=== PATIENT | male | born 1965 | race Caucasian/White ===

== ENCOUNTER 2016-06-23 19:58 | Emergency (ER) | payer OTHER ==
[~2016-06-23] VITALS: Ht 188 cm; Wt 85.0 kg
[~2016-06-23 19:58] MED LIST: CHLO10CA2 PO; METO25TA3 PO; MIRTA15 PO; PROZ40CA PO; QUET1TAB11 PO; SERO300T PO
[2016-06-23 20:08] VITALS: BP 123/76; PULSE 74; RESP 16; TEMP 97.8; O2SAT 96
--- NOTE | 2016-06-23 20:33 | PD ---
HPI Chief Complaint: Psychiatric Symptoms Time Seen by Provider: 20:32 Travel History International Travel<30 days: No Contact w/Intl Traveler<30days: No Traveled to known affect area: No History of Present Illness HPI 51-year-old male presents to the emergency department under [employer] act after calling 911 dispatch and telling them that he was at a retention [place] and he was going to jump in and drowning himself because he didn't want to live anymore. The patient has been uncooperative and history of present illness was unable to be obtained. He is being aggressive and yelling and being uncooperative to answer questions. PFSH Past Medical History Hx Anticoagulant Therapy: No ADHD: Yes Arthritis: No Asthma: No Autoimmune Disease: No Anxiety: Yes Depression: Yes Heart Rhythm Problems: Yes Cardiovascular Problems: Yes ([place] ON DECEMBER 21 2015) High Cholesterol: Yes Chemotherapy: No Chest Pain: Yes Congestive Heart Failure: No COPD: No Cerebrovascular Accident: No Diminished Hearing: No Endocrine: No Gastrointestinal Disorders: Yes (ACID REFLUX) GERD: Yes Genitourinary: No Hepatitis: No Hiatal Hernia: No Hypertension: Yes (HX OF, NOT ON MEDS) Immune Disorder: No Implanted Vascular Access Dvce: No Kidney Stones: No Medical other: No Musculoskeletal: Yes (FRACTURED L HAND) Neurologic: Yes (LEFT HAND GOES NUMB) Psychiatric: Yes Reproductive: No Respiratory: No Immunizations Current: Yes Migraines: No Myocardial Infarction: Yes (01/02) Radiation Therapy: No Renal Failure: No Sickle Cell Disease: No Sleep Apnea: No Thyroid Disease: No Ulcer: No Tetanus Vaccination: < 5 Years Influenza Vaccination: No Past Surgical History 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 Reported Meds & Prescriptions Reported Meds & Active Scripts Active Reported Seroquel (Quetiapine Fumarate) 300 Mg Tab 300 Mg PO BID Quetiapine (Quetiapine Fumarate) 400 Mg Tab 400 Mg PO HS Mirtazapine 15 Mg Tab 15 Mg PO HS Metoprolol Tartrate 25 Mg Tab 25 Mg PO BID Prozac (Fluoxetine HCl) 40 Mg Cap 40 Cap PO DAILY Chlordiazepoxide (Chlordiazepoxide HCl) 10 Mg Cap 10 Mg PO BID PRN Review of Systems ROS Limitations: Uncooperative, Combative Physical Exam Narrative Physical exam is limited due to visualization of the patient secondary to being uncooperative and combative. GENERAL: Well-nourished, well-developed male patient, in no acute distress SKIN: Warm and dry. HEAD: Atraumatic. Normocephalic. ENT: Mucosa pink and moist. NECK: Trachea midline. CARDIOVASCULAR: Regular rate. RESPIRATORY: No accessory muscle use. GASTROINTESTINAL: Flat. MUSCULOSKELETAL: No obvious deformities. No clubbing. No cyanosis. No edema. NEUROLOGICAL: Awake and alert. No obvious cranial nerve deficits. Motor grossly within normal limits. Normal speech. Moves all extremities. 5/5 strength to all extremities. PSYCHIATRIC: Uncooperative, combative, aggressive. Data Data Last Documented VS Vital Signs Date Time Temp Pulse Resp B/P Pulse Ox O2 Delivery O2 Flow Rate FiO2 06/23/16 20:10 16 06/23/16 20:08 97.8 74 123/76 96 Orders Complete Blood Count With Diff (06/23/16 20:20) Comprehensive Metabolic Panel (06/23/16 20:20) Drug Screen, Random Urine (06/23/16 20:20) Alcohol (Ethanol) (06/23/16 20:20) Psych Screen (06/23/16 20:20) MDM Medical Decision Making Medical Screen Exam Complete: Yes Emergency Medical Condition: Yes Medical Record Reviewed: Yes Differential Diagnosis Alcohol intoxication, medical clearance for psych evaluation, suicidal ideation , suicidal threat Narrative Course Patient presents under a Gunter act. Physical examination and vital signs are essentially unremarkable. Patient has no medical complaints to report. Psych screen has been ordered. If the laboratory results are unremarkable, the patient will be medically cleared for psychiatric evaluation and disposition. Diagnosis Primary Impression: Medical clearance for psychiatric admission Condition: Stable Pushpa Cates Jun 23, 2016 20:32
[2016-06-23 22:55] VITALS: BP 108/56; PULSE 100; RESP 18; TEMP 97.6; O2SAT 98
[2016-06-23 23:01] LABS: AMPHETAMINE, URINE NEG (NEG); BARBITURATES, URINE NEG (NEG); COCAINE, URINE NEG (NEG)
[2016-06-24 01:07] LABS: AUTOMATED NEUTROPHIL # 2.7 TH/MM3 (1.8-7.7); BASOPHIL % 0.1 % (0.0-2.0); EOSINOPHIL # 0.1 TH/MM3 (0-0.4); EOSINOPHIL % 1.7 % (0.0-4.0); HEMATOCRIT 40.7 % (39.0-51.0); HEMO FLAGS DIFF FINAL; LYMPH % 42.5 % (9.0-44.0); LYMPHOCYTE # 2.3 TH/MM3 (1.0-4.8); MEAN CELL VOLUME 86.9 FL (80.0-100.0); MEAN CORPUSCULAR HEMOGLOBIN 28.9 PG (27.0-34.0); MEAN CORPUSCULAR HGB CONC 33.3 % (32.0-36.0); MONO % 5.8 % (0.0-8.0); NEUT % 49.9 % (16.0-70.0); PLATELET COUNT 128 TH/MM3 (150-450); RED BLOOD COUNT 4.69 MIL/MM3 (4.50-5.90); RED CELL DISTRIBUTION WIDTH 15.8 % (11.6-17.2); WHITE BLOOD COUNT 5.4 TH/MM3 (4.0-11.0)
[2016-06-24 01:26] LABS: ALT (GPT) 31 U/L (12-78); ANION GAP 12 MEQ/L (5-15); AST (GOT) 24 U/L (15-37); BICARBONATE 25.9 MEQ/L (21.0-32.0); BLOOD UREA NITROGEN 11 MG/DL (7-18); CHLORIDE 105 MEQ/L (98-107); GLOMERULAR FILTRATION RATE 81 ML/MIN (>89); POTASSIUM 3.8 MEQ/L (3.5-5.1); SODIUM (NA) 143 MEQ/L (136-145)
[2016-06-24 01:29] LABS: ALKALINE PHOSPHATASE 92 U/L (45-117); TOTAL BILIRUBIN ADULT 0.3 MG/DL (0.2-1.0)
[2016-06-24 03:17] VITALS: BP 119/73; PULSE 95; RESP 18; TEMP 97.1; O2SAT 97
[2016-06-24 06:28] VITALS: BP 140/80; PULSE 105; RESP 18; O2SAT 97
--- NOTE | 2016-06-24 10:59 | PD.CONS ---
Provisional Diagnosis Admission Date [facility]. Alcohol use disorder, alcohol-induced mood disorder History of Present Illness Service Psychiatry Consult Requested By Primary Care Physician Nneka Núñez MD HPI The patient is a 51-year-old white man, domiciled with a friend, unemployed, single, with psychiatric history of alcohol use disorder, alcohol-induced mood disorder, depression, multiple ER visits under [employer] act for alcohol related issues, previous suicidal attempts by OD,who presents to the emergency department under [employer] act after calling 911 dispatch and telling them that he was at a retention pond and he was going to jump in and drowning himself because he didn't want to live anymore in the context of acute alcohol intoxication. On psychiatric evaluation today the patient was calm and cooperative, requesting to be discharged already, he says the last night he was drunk and he just wanted a place to stay and sleep and be safe. Today's he denies depressive symptoms, he denies suicidal ideation, he denies anxiety, he denies perceptual disturbances, such as visual and auditory hallucinations. Patient is fully oriented in 3, he doesn't report present any withdrawal symptom at this moment. She reports daily use of alcohol, mostly beers between 12 and 20, he denies the use of illicit drugs. He has been in several detox and rehabilitation was in the past. Patient says that he is willing to go to a detox program today "because, but it or not I want to quit alcohol". Review of Systems Constitutional: DENIES: Diaphoretic episodes, Fatigue, Fever, Weight gain, Weight loss, Chills, Dizziness, Change in appetite, Night Sweats Endocrine: DENIES: Heat/cold intolerance, Polydipsia, Polyuria, Polyphagia Eyes: DENIES: Blurred vision, Diplopia, Eye inflammation, Eye pain, Vision loss , Photosensitivity, Double Vision Ears, nose, mouth, throat: DENIES: Tinnitus, Hearing loss, Vertigo, Nasal discharge, Oral lesions, Throat pain, Hoarseness, Ear Pain, Running Nose, Epistaxis, Sinus Pain, Toothache, Odynophagia Cardiovascular: DENIES: Chest pain, Palpitations, Syncope, Dyspnea on Exertion , PND, Lower Extremity Edema, Orthopnea, Claudication Gastrointestinal: DENIES: Abdominal pain, Black stools, Bloody stools, Constipation, Diarrhea, Nausea, Vomiting, Difficulty Swallowing, Anorexia Musculoskeletal: DENIES: Joint pain, Muscle aches, Stiffness, Joint Swelling, Back pain, Neck pain Integumentary: DENIES: Abnormal pigmentation, Nail changes, Pruritus, Rash Hematologic/lymphatic: DENIES: Bruising, Lymphadenopathy Immunologic/allergic: DENIES: Eczema, Urticaria Neurologic: DENIES: Abnormal gait, Headache, Localized weakness, Paresthesias, Seizures, Speech Problems, Tremor, Poor Balance Psychiatric: DENIES: Anxiety, Confusion, Mood changes, Depression, Hallucinations, Agitation, Suicidal Ideation, Homicidal Ideation, Delusions Past Family Social History Coded Allergies: *MDRO Multi-Drug Resistant Organism (Verified Adverse Reaction, Unknown, ) MRSA (arm wound) 01/2015 Reported Medications Quetiapine (Seroquel)300 Mg [id number] Mg PO BID #60 TAB Ref 0 05/12/16 Quetiapine 400 Mg Bmv214 Mg PO HS #30 TAB Ref 0 05/12/16 Mirtazapine 15 Mg Tab15 Mg PO HS #30 TAB Ref 0 05/12/16 Metoprolol Tartrate 25 Mg Tab25 Mg PO BID #60 TAB Ref 0 05/12/16 Fluoxetine (Prozac)40 Mg Cap40 Cap PO DAILY #30 CAP Ref 0 05/12/16 Chlordiazepoxide 10 Mg Cap10 Mg PO BID PRN (Anxiety) Ref 0 05/12/16 Social History Patient was born and raised in [place], he has been living in [place] for 10 years, he lives with a friend, his unemployed, single, no kids, he has a GED Physical Exam Vital Signs Vital Signs Date Time Temp Pulse Resp B/P Pulse Ox O2 Delivery O2 Flow Rate FiO2 06/24/16 06:28 105 18 140/80 97 06/24/16 03:17 97.1 Room Air Mental Status Examination Appearance man, older than his stated age, calm and cooperative Speech: Unremarkable Orientation: x3 Memory: Unremarkable Thought Process: Logical Thought Content: Unremarkable Hallucination Type: None Suicidal Ideation: No Previous Suicide Attempts: Yes Homicidal Ideation: No Previous Homicide Attempts: No Insight: Good Judgement: WNL Affect: Good Mood: Appropriate Motor Activity: Normal gait Assessment & Plan Problem List: (1) Drug-induced mood disorder Assessment & Plan: At the moment of this evaluation the patient is clinically sober, calm and cooperative, logical and coherent, denies depressive symptoms, denies anxiety, denies perceptual disturbances, denies suicidal and homicidal ideation, denies visual and auditory hallucinations, he is future oriented, requesting to be discharged to go to a detox program. Referral for detox was provided in [facility]. At the moment of this evaluation the patient does not meet criteria for psychiatric admission or any immediate psychiatric intervention, his recent suicidal statements that brought him to the ER under Gunter act initiated by police was most probably the result of acute alcohol intoxication. Gunter act will be lifted. Extensive psychoeducation and motivation was provided. ICD Code: F19.94 Assessment & Plan Estimated LOS: Robert Sanabria MD Jun 24, 2016 10:59
== END 2016-06-24 08:54 | disposition home or self-care (01) ==
LOC: NEDAMB 19:58 → NEPJ 06-24 08:54
DX: F19.14 Other psychoactive substance abuse with psychoactive substance-induced mood disorder (principal); F10.10 Alcohol abuse, uncomplicated; F41.8 Other specified anxiety disorders; I10 Essential (primary) hypertension; F90.9 Attention-deficit hyperactivity disorder, unspecified type; I25.2 Old myocardial infarction; Z72.0 Tobacco use
CPT/HCPCS: 80053; 80307; 80320; 85025; 99284

== ENCOUNTER 2016-06-24 21:36 | Emergency (ER) | payer OTHER ==
[~2016-06-24] VITALS: Ht 182.9 cm; Wt 87.0 kg
[2016-06-24 21:44] VITALS: BP 129/93; PULSE 115; RESP 16; TEMP 98.8; O2SAT 96
[2016-06-24 22:24] LABS: AUTOMATED NEUTROPHIL # 3.4 TH/MM3 (1.8-7.7); BASOPHIL % 0.3 % (0.0-2.0); EOSINOPHIL # 0.1 TH/MM3 (0-0.4); EOSINOPHIL % 1.1 % (0.0-4.0); HEMO FLAGS DIFF FINAL; LYMPH % 40.1 % (9.0-44.0); LYMPHOCYTE # 2.6 TH/MM3 (1.0-4.8); MEAN CELL VOLUME 86.8 FL (80.0-100.0); MEAN CORPUSCULAR HEMOGLOBIN 29.9 PG (27.0-34.0); MEAN CORPUSCULAR HGB CONC 34.4 % (32.0-36.0); MONO % 6.7 % (0.0-8.0); NEUT % 51.8 % (16.0-70.0); PLATELET COUNT 145 TH/MM3 (150-450); RED BLOOD COUNT 4.84 MIL/MM3 (4.50-5.90); WHITE BLOOD COUNT 6.5 TH/MM3 (4.0-11.0)
[2016-06-24 22:42] LABS: AMPHETAMINE, URINE NEG (NEG); BARBITURATES, URINE NEG (NEG); COCAINE, URINE NEG (NEG)
[2016-06-24 22:46] LABS: BICARBONATE 25.9 MEQ/L (21.0-32.0); POTASSIUM 3.9 MEQ/L (3.5-5.1)
--- NOTE | 2016-06-24 23:31 | PD ---
HPI Chief Complaint: Psychiatric Symptoms Time Seen by Provider: 23:06 Travel History International Travel<30 days: No Contact w/Intl Traveler<30days: No Traveled to known affect area: No History of Present Illness HPI 51-year-old male came to the emergency room under Gunter act brought by PD. Patient is extremely intoxicated. His labs were protocoled and by the time I went to see him blood test results were back. Alcohol level is 366. Patient wakes up calling his name but has extremely slurred speech and not making sense. PFSH Past Medical History Narrative Medical List of his past medical history reviewed from the nursing note. Hx Anticoagulant Therapy: No ADHD: Yes Arthritis: No Asthma: No Autoimmune Disease: No Anxiety: Yes Depression: Yes Heart Rhythm Problems: Yes Cardiovascular Problems: Yes ([place] ON DECEMBER 21 2015) High Cholesterol: Yes Chemotherapy: No Chest Pain: Yes Congestive Heart Failure: No COPD: No Cerebrovascular Accident: No Diminished Hearing: No Endocrine: No Gastrointestinal Disorders: Yes (ACID REFLUX) GERD: Yes Genitourinary: No Hepatitis: No Hiatal Hernia: No Hypertension: Yes (HX OF, NOT ON MEDS) Immune Disorder: No Implanted Vascular Access Dvce: No Kidney Stones: No Musculoskeletal: Yes (FRACTURED L HAND) Neurologic: Yes (LEFT HAND GOES NUMB) Psychiatric: Yes Reproductive: No Respiratory: No Immunizations Current: Yes Migraines: No Myocardial Infarction: Yes (01/02) Radiation Therapy: No Renal Failure: No Sickle Cell Disease: No Sleep Apnea: No Thyroid Disease: No Ulcer: No Past Surgical History 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 Comments List of his medical allergies reviewed from the nursing note. Reported Meds & Prescriptions Reported Meds & Active Scripts Active Reported Seroquel (Quetiapine Fumarate) 300 Mg Tab 300 Mg PO BID Quetiapine (Quetiapine Fumarate) 400 Mg Tab 400 Mg PO HS Mirtazapine 15 Mg Tab 15 Mg PO HS Metoprolol Tartrate 25 Mg Tab 25 Mg PO BID Prozac (Fluoxetine HCl) 40 Mg Cap 40 Cap PO DAILY Chlordiazepoxide (Chlordiazepoxide HCl) 10 Mg Cap 10 Mg PO BID PRN Narrative Medication List of his home medications reviewed from the nursing note. Review of Systems Except as stated in HPI: all other systems reviewed are Neg Physical Exam Narrative GENERAL: Intoxicated, slurred speech SKIN: Warm and dry. HEAD: Atraumatic. Normocephalic. EYES: Pupils equal and round. No scleral icterus. No injection or drainage. ENT: No nasal bleeding or discharge. Mucous membranes pink and moist. NECK: Trachea midline. No JVD. CARDIOVASCULAR: Regular rate and rhythm. No murmur appreciated. RESPIRATORY: No accessory muscle use. Clear to auscultation. Breath sounds equal bilaterally. GASTROINTESTINAL: Abdomen soft, non-tender, nondistended. Hepatic and splenic margins not palpable. MUSCULOSKELETAL: No obvious deformities. No clubbing. No cyanosis. No edema. NEUROLOGICAL: Intoxicated. No obvious cranial nerve deficits. Motor grossly within normal limits. Slurred speech. PSYCHIATRIC: Appropriate mood and affect; insight and judgment normal. Data Data Last Documented VS Vital Signs Date Time Temp Pulse Resp B/P Pulse Ox O2 Delivery O2 Flow Rate FiO2 06/26/16 06:25 80 18 142/72 99 Room Air 06/25/16 18:50 97.8 Orders Complete Blood Count With Diff (06/24/16 22:12) Basic Metabolic Panel (Bmp) (06/24/16 22:12) Alcohol (Ethanol) (06/24/16 22:12) Drug Screen, Random Urine (06/24/16 22:12) Psych Screen (06/25/16 00:53) Diet Regular Basic (06/25/16 Breakfast) Alcohol Withdrawal Asmt-Ciwa ONCE (06/25/16 08:07) Flumazenil Inj (Romazicon Inj) (06/25/16 08:15) Lorazepam (Ativan) (06/25/16 08:15) Lorazepam Inj (Ativan Inj) (06/25/16 08:15) Lorazepam (Ativan) (06/25/16 08:15) Lorazepam Inj (Ativan Inj) (06/25/16 08:15) Lorazepam Inj (Ativan Inj) (06/25/16 08:15) Lorazepam Inj (Ativan Inj) (06/25/16 08:15) Diet Regular Basic (06/25/16 Lunch) Diet Regular Basic (06/25/16 Dinner) Diet Regular Basic (06/26/16 Breakfast) Labs Laboratory Tests Test 06/24/16 22:15 White Blood Count 6.5 TH/MM3 Red Blood Count 4.84 MIL/MM3 Hemoglobin 14.5 GM/DL Hematocrit 42.0 % Mean Corpuscular Volume 86.8 FL Mean Corpuscular Hemoglobin 29.9 PG Mean Corpuscular Hemoglobin 34.4 % Concent Red Cell Distribution Width 16.0 % Platelet Count 145 TH/MM3 Mean Platelet Volume 7.2 FL Neutrophils (%) (Auto) 51.8 % Lymphocytes (%) (Auto) 40.1 % Monocytes (%) (Auto) 6.7 % Eosinophils (%) (Auto) 1.1 % Basophils (%) (Auto) 0.3 % Neutrophils # (Auto) 3.4 TH/MM3 Lymphocytes # (Auto) 2.6 TH/MM3 Monocytes # (Auto) 0.4 TH/MM3 Eosinophils # (Auto) 0.1 TH/MM3 Basophils # (Auto) 0.0 TH/MM3 CBC Comment DIFF FINAL Differential Comment Sodium Level 142 MEQ/L Potassium Level 3.9 MEQ/L Chloride Level 104 MEQ/L Carbon Dioxide Level 25.9 MEQ/L Anion Gap 12 MEQ/L Blood Urea Nitrogen 9 MG/DL Creatinine 0.93 MG/DL Estimat Glomerular Filtration 86 ML/MIN Rate Random Glucose 99 MG/DL Calcium Level 8.9 MG/DL Urine Opiates Screen NEG Urine Barbiturates Screen NEG Urine Amphetamines Screen NEG Urine Benzodiazepines Screen NEG Urine Cocaine Screen NEG Urine Cannabinoids Screen NEG Ethyl Alcohol Level 366 MG/DL [facility] Medical Decision Making Medical Screen Exam Complete: Yes Emergency Medical Condition: Yes Medical Record Reviewed: Yes Differential Diagnosis Acute alcohol intoxication, suicidal ideation Narrative Course 11:30 PM patient needs to sober eyes and then get a psych screen. Procedures EKG Prior to Arrival: No Diagnosis Primary Impression: Acute alcohol intoxication Qualified Code: F10.121 - Acute alcohol intoxication, with delirium Remy Sierra MD Jun 24, 2016 23:31
[2016-06-25] VITALS (8 sets, daily range): BP systolic 95–134; BP diastolic 52–84; PULSE 92–122; RESP 18–20; TEMP 97.8–99.5; O2SAT 94–99
[2016-06-25] MEDS ORDERED: FLUMAZENIL 1 MG/10 ML VIAL IV PUSH PRN (08:15)
[2016-06-25] MEDS ORDERED: LORazepam 2 MG TAB PO PRN (08:15)
[2016-06-25] MEDS ORDERED: LORazepam 2 MG/ML VIAL IV PUSH PRN ×4 (08:15)
[2016-06-25] MEDS: LORazepam 1 MG TAB PO PRN ×3 (08:36→19:33)
[2016-06-26] MEDS: LORazepam 1 MG TAB PO PRN (00:49)
[2016-06-26 02:24] VITALS: BP_SYST 142; BP_DIAS 75; BP_DIAS 89; PULSE 77; PULSE 90; RESP 16; RESP 19; O2SAT 97; O2SAT 99
[2016-06-26 06:25] VITALS: BP 142/72; PULSE 80; RESP 18; O2SAT 99
--- NOTE | 2016-06-26 09:24 | PD ---
History of Present Illness Chief Complaint: Psychiatric Symptoms Time Seen by Provider: 09:00 Travel History International Travel<30 Days: No Contact w/Intl Traveler<30days: No Known affected area: No Legal Status Legal Status: Gunter Act Gunter Act Signed By: Candelaria Rasmussen History of Present Illness: History of Present Illness 51-year-old male with history of alcohol dependence who presents to the emergency room under [employer]ter act initiated by PD. As per the report " Cory munoz advised deputy Son that he wanted to hurt himself. He was intoxicated and advised that he wanted to throw himself into the pond [place] the [employer]". Patient presented intoxicated with BAL of 366 . As per record reviewed the patient was evaluated and released from the ED earlier in the day for alcohol intoxication as well with alcohol induced suicidality. This patient has had multiple visits to [facility] ed on and is usually intoxicated at the time. Patient was monitored in [facility] pod where he was allowed to sober up clinically. No behavioral concerns and no suicidality. Seen this morning with Nurse Riley. He is awake, alert and clinically sober. Speech is clear and logical, goal directed. There is no hallucinations, no delusions and no emily. Patient is ambulating well with no impairment. He denies any suicidal ideation, intent or plan. States " I don't even remember how I got here. I'm just glad I am here and not in half-way. I want to look for another sober living home.. He reports that he has been drinking since his birthday and had previously been sober x 37 days. PFSH Past Medical History Hx Anticoagulant Therapy: No ADHD: Yes Arthritis: No Asthma: No Autoimmune Disease: No Anxiety: Yes Depression: Yes Heart Rhythm Problems: Yes Cardiovascular Problems: Yes ([place] ON DECEM[place] 21 2015) High Cholesterol: Yes Chemotherapy: No Chest Pain: Yes Congestive Heart Failure: No COPD: No Cerebrovascular Accident: No Diminished Hearing: No Endocrine: No Gastrointestinal Disorders: Yes (ACID REFLUX) GERD: Yes Genitourinary: No Hepatitis: No Hiatal Hernia: No Hypertension: Yes (HX OF, NOT ON MEDS) Immune Disorder: No Implanted Vascular Access Dvce: No Kidney Stones: No Musculoskeletal: Yes (FRACTURED L HAND) Neurologic: Yes (LEFT HAND GOES NUMB) Psychiatric: Yes Reproductive: No Respiratory: No Immunizations Current: Yes Migraines: No Myocardial Infarction: Yes (01/02) Radiation Therapy: No Renal Failure: No Sickle Cell Disease: No Sleep Apnea: No Thyroid Disease: No Ulcer: No Past Surgical History Abdominal Surgery: No AICD: No Arteriovenous Shunt: No Cardiac Surgery: No Ear Surgery: No Endocrine Surgery: No Eye Surgery: No Genitourinary Surgery: No Gynecologic Surgery: No Hysterectomy: No Insulin Pump: No Joint Replacement: No Neurologic Surgery: No Oral Surgery: Yes (TOOTH REMOVAL) Pacemaker: No Thoracic Surgery: No Psychiatric History Psychiatric History Hx Psychiatric Treatment: HX OF ANXIETY AND DEPRESSION History of Inpatient Treatment: Yes ([facility] January 2016 for alcohol induced mood disorder.) Guns or firearms in home: No Social History Single male. Has been working for [employer]. Was living at [facility]. Hx Alcohol Use: Yes (DAILY) Hx Tobacco Use: Yes Hx Substance Use: Yes Substance Use Type: Alcohol, Marijuana, Nicotine/Cigarettes Other Substances Used: DAILY DRINKER Hx of Substance Use Treatment: Yes Family Psychiatric History None reported Allergies-Medications (Allergen,Severity, Reaction): Coded Allergies: *MDRO Multi-Drug Resistant Organism (Verified Adverse Reaction, Unknown, ) MRSA (arm wound) 01/2015 Reported Meds & Prescriptions Reported Meds & Active Scripts Active Reported Seroquel (Quetiapine Fumarate) 300 Mg Tab 300 Mg PO BID Quetiapine (Quetiapine Fumarate) 400 Mg Tab 400 Mg PO HS Mirtazapine 15 Mg Tab 15 Mg PO HS Metoprolol Tartrate 25 Mg Tab 25 Mg PO BID Prozac (Fluoxetine HCl) 40 Mg Cap 40 Cap PO DAILY Chlordiazepoxide (Chlordiazepoxide HCl) 10 Mg Cap 10 Mg PO BID PRN Review of Systems Constitutional: DENIES: Diaphoretic episodes, Fatigue, Fever, Weight gain, Weight loss, Chills, Dizziness, Change in appetite, Night Sweats Endocrine: DENIES: Heat/cold intolerance, Polydipsia, Polyuria, Polyphagia Eyes: DENIES: Blurred vision, Diplopia, Eye inflammation, Eye pain, Vision loss , Photosensitivity, Double Vision Cardiovascular: DENIES: Chest pain, Palpitations, Syncope, Dyspnea on Exertion , PND, Lower Extremity Edema, Orthopnea, Claudication Gastrointestinal: COMPLAINS OF: Diarrhea, Nausea Genitourinary: DENIES: Sexual dysfunction, Urinary frequency, Urinary incontinence, Urgency, Hematuria, Dysuria, Nocturia, Penile Discharge, Testicular Pain, Testicular Swelling Musculoskeletal: DENIES: Joint pain, Muscle aches, Stiffness, Joint Swelling, Back pain, Neck pain Integumentary: DENIES: Abnormal pigmentation, Nail changes, Pruritus, Rash Hematologic/lymphatic: DENIES: Bruising, Lymphadenopathy Immunologic/allergic: DENIES: Eczema, Urticaria Psychiatric: DENIES: Anxiety, Confusion, Mood changes, Depression, Hallucinations, Agitation, Suicidal Ideation, Homicidal Ideation, Delusions Exam Alert: Yes [place]: Person (ox4) Mood: Calm Affect: Euthymic Speech: Clear, Logical Eye Contact: Normal Memory Intact: Comment (no impairment) Hallucinations: Other (negative) Delusions: No Suicidal: Ideation (deneis any) Homicidal: Ideation (nagative) Insight/Judgement Fair. Poor MDM Medical Decision Making Medical Record Reviewed: Yes Assessment/Plan 51 year old male with hx of alcohol dependence who is BA after he was found in the back of [facility] in an intoxicated state. He alledgedly reported that he was thinking of jumping into a pond and was therefore BA. Patient was monitored in controlled environment and was allowed to sober up clinically. After observation and once clinically sober he denies any suicidal or homicidal ideation, intent or plan. At this time does not meet BA criteria and does not present any acute psychiatric symptomatology. Information regarding available resources for sober living provided. Lift BA Orders Diet Regular Basic (06/25/16 Dinner) Diet Regular Basic (06/26/16 Breakfast) Results Vital Signs Date Time Temp Pulse Resp B/P Pulse Ox O2 Delivery O2 Flow Rate FiO2 06/26/16 06:25 80 18 142/72 99 Room Air 06/26/16 02:24 90 16 142/89 97 Room Air 06/25/16 22:34 100 18 134/84 Room Air 06/25/16 18:50 97.8 119 18 126/76 96 Room Air 06/25/16 14:47 122 20 132/70 94 Room Air 06/25/16 11:25 99.5 110 18 128/70 96 Room Air Diagnosis Primary Impression: Acute alcohol intoxication Additional Impression: Alcohol use disorder, severe, dependence Psychiatrically Cleared: Yes Disposition: 01 DISCHARGE HOME Condition: Stable Problem Qualifiers Primary Impression: Acute alcohol intoxication Qualified Code: F10.120 - Acute alcohol intoxication, uncomplicated Aurea Byrnes Jun 26, 2016 09:24
== END 2016-06-26 10:43 | disposition home or self-care (01) ==
LOC: NEPC 21:36 → NEPJ 06-26 10:43
DX: F10.229 Alcohol dependence with intoxication, unspecified (principal); E78.00 Pure hypercholesterolemia, unspecified; K21.9 Gastro-esophageal reflux disease without esophagitis; I10 Essential (primary) hypertension; I25.2 Old myocardial infarction; Z72.0 Tobacco use
CPT/HCPCS: 80048; 80307; 80320; 85025; 99284

== ENCOUNTER 2016-06-29 20:18 | Emergency (ER) | payer OTHER ==
[~2016-06-29] VITALS: Ht 190.5 cm; Wt 95.0 kg
[2016-06-29 20:27] VITALS: BP 142/96; PULSE 104; RESP 18; TEMP 98.1; O2SAT 98
--- NOTE | 2016-06-29 21:21 | PD ---
HPI Chief Complaint: Psychiatric Symptoms Time Seen by Provider: 21:18 Travel History International Travel<30 days: No Contact w/Intl Traveler<30days: No Traveled to known affect area: No History of Present Illness HPI The patient is a 51 year old male who presents to the [facility] emergency department with a history of being brought in by the police manager under a Gunter act due to reports that he wanted to kill himself. The patient is noted to have a prior history of major depression with psychotic features and PTSD. The patient has been admitted to the psychiatric service at this facility previously. The patient reports that he recently lost his job on June 21. He reports that he's had increasing depression since then. He reports that he stopped taking his psychiatric medications in May. He reports that he stopped taking the Seroquel that was working well for him when the dose was decreased. He reports that it helps him to sleep. He is not sure why the dose was decreased at that time. Ports that he has been drinking as much alcohol as he can get a hold of. He reports that when he drinks alcohol he does smoke. He denies using any drugs. The patient reports that he has been experiencing suicidal ideations. On arrival to the room, the patient is requesting food. The patient denies any recent fevers, cough, congestion, neck pain, chest pain, shortness of breath, abdominal pain, vomiting, diarrhea, urinary symptoms, or neurologic symptoms. [facility] Past Medical History Narrative Medical The patient's past medical history is reportedly significant for having chest pain, reported history of myocardial infarction in December 2015. The patient has a history of chronic low back pain, history of seizure disorder, alcohol abuse Hx Anticoagulant Therapy: No ADHD: Yes Arthritis: No Asthma: No Autoimmune Disease: No Anxiety: Yes Depression: Yes Heart Rhythm Problems: Yes Cardiovascular Problems: Yes ([place] ON DECEMBER 21 2015) High Cholesterol: Yes Chemotherapy: No Chest Pain: Yes Congestive Heart Failure: No COPD: No Cerebrovascular Accident: No Diminished Hearing: No Endocrine: No Gastrointestinal Disorders: Yes (ACID REFLUX) GERD: Yes Genitourinary: No Hepatitis: No Hiatal Hernia: No Hypertension: Yes (HX OF, NOT ON MEDS) Immune Disorder: No Implanted Vascular Access Dvce: No Kidney Stones: No Musculoskeletal: Yes (FRACTURED L HAND) Neurologic: Yes (LEFT HAND GOES NUMB) Psychiatric: Yes Reproductive: No Respiratory: No Immunizations Current: Yes Migraines: No Myocardial Infarction: Yes (01/02) Radiation Therapy: No Renal Failure: No Sickle Cell Disease: No Sleep Apnea: No Thyroid Disease: No Ulcer: No Influenza Vaccination: No Past Surgical History Narrative Surgical The patient's past surgical history is significant for left hand surgery. 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 Reported Meds & Prescriptions Reported Meds & Active Scripts Active Reported Seroquel (Quetiapine Fumarate) 300 Mg Tab 300 Mg PO BID Quetiapine (Quetiapine Fumarate) 400 Mg Tab 400 Mg PO HS Mirtazapine 15 Mg Tab 15 Mg PO HS Metoprolol Tartrate 25 Mg Tab 25 Mg PO BID Prozac (Fluoxetine HCl) 40 Mg Cap 40 Cap PO DAILY Chlordiazepoxide (Chlordiazepoxide HCl) 10 Mg Cap 10 Mg PO BID PRN Review of Systems Except as stated in HPI: all other systems reviewed are Neg General / Constitutional: No: Fever Eyes: No: Visual changes HENT: No: Headaches Cardiovascular: No: Chest Pain or Discomfort Respiratory: No: Shortness of Breath Gastrointestinal: No: Abdominal Pain Genitourinary: No: Dysuria Musculoskeletal: No: Pain Skin: No Rash Neurologic: No: Weakness Psychiatric: Positive: Anxiety, Depression, Suicidal Ideations, Mood Disorder, Substance Abuse, No: Homicidal Ideation Endocrine: No: Polydipsia Hematologic/Lymphatic: No: Easy Bruising Physical Exam Narrative General: The patient is a well-developed well-nourished male in no acute distress. Head and Neck exam: Head is normocephalic atraumatic. Eyes: Pupils are equal round and reactive to light. Nose: Midline septum with pink mucous membranes Mouth: Dentition unremarkable. Moist mucus membranes. Posterior oropharynx is not erythematous. No tonsillar hypertrophy. Uvula midline. Airway patent. Neck: No palpable lymphadenopathy. No nuchal rigidity. No thyromegaly. Cardiovascular: Regular rate and rhythm without murmurs, gallops, or rubs. Lungs: Clear to auscultation bilaterally. No wheezes, rhonchi, or rales. Abdomen: Soft, without tenderness to palpation in all 4 quadrants of the abdomen. No guarding, rebound, or rigidity. Normal bowel sounds are audible. Extremities: No clubbing, cyanosis, or edema. 2+ pulses in all 4 extremities. Neurologic Exam: Grossly nonfocal. No evidence of facial asymmetry. Strength 5 over 5 in all 4 extremities. The patient has slurred speech with an odor of alcohol about him. He is however oriented to person, place, time, and situation. Skin Exam: No rash noted. Intact skin that is warm and dry. Data Data Last Documented VS Vital Signs Date Time Temp Pulse Resp B/P Pulse Ox O2 Delivery O2 Flow Rate FiO2 06/29/16 20:27 98.1 104 18 142/96 98 Orders Complete Blood Count With Diff (06/29/16 21:19) Comprehensive Metabolic Panel (06/29/16 21:19) Urinalysis - C+S If Indicated (06/29/16 21:19) Drug Screen, Random Urine (06/29/16 21:19) Alcohol (Ethanol) (06/29/16 21:19) Salicylates (Aspirin) (06/29/16 21:19) Tylenol (Acetaminophen) (06/29/16 21:19) Psych Screen (06/29/16 21:19) Quetiapine (Seroquel) (06/29/16 21:45) Labs Laboratory Tests Test 06/29/16 21:30 White Blood Count 8.7 TH/MM3 Red Blood Count 4.85 MIL/MM3 Hemoglobin 14.3 GM/DL Hematocrit 42.0 % Mean Corpuscular Volume 86.5 FL Mean Corpuscular Hemoglobin 29.4 PG Mean Corpuscular Hemoglobin 34.0 % Concent Red Cell Distribution Width 15.8 % Platelet Count 111 TH/MM3 Mean Platelet Volume 7.4 FL Neutrophils (%) (Auto) 76.0 % Lymphocytes (%) (Auto) 19.7 % Monocytes (%) (Auto) 3.4 % Eosinophils (%) (Auto) 0.5 % Basophils (%) (Auto) 0.4 % Neutrophils # (Auto) 6.6 TH/MM3 Lymphocytes # (Auto) 1.7 TH/MM3 Monocytes # (Auto) 0.3 TH/MM3 Eosinophils # (Auto) 0.0 TH/MM3 Basophils # (Auto) 0.0 TH/MM3 CBC Comment DIFF FINAL Differential Comment Urine Color COLORLESS Urine Turbidity CLEAR Urine pH 5.0 Urine Specific [place] 1.003 Urine Protein NEG mg/dL Urine Glucose (UA) NEG mg/dL Urine Ketones NEG mg/dL Urine Occult Blood NEG Urine Nitrite NEG Urine Bilirubin NEG Urine Urobilinogen LESS THAN 2.0 MG/DL Urine Leukocyte Esterase NEG Urine RBC LESS THAN 1 /hpf Urine WBC 1 /hpf Microscopic Urinalysis Comment CULT NOT INDICATED Sodium Level 138 MEQ/L Potassium Level 3.8 MEQ/L Chloride Level 101 MEQ/L Carbon Dioxide Level 25.2 MEQ/L Anion Gap 12 MEQ/L Blood Urea Nitrogen 10 MG/DL Creatinine 0.87 MG/DL Estimat Glomerular Filtration 93 ML/MIN Rate Random Glucose 80 MG/DL Calcium Level 8.7 MG/DL Total Bilirubin 0.4 MG/DL Aspartate Amino Transf 39 U/L (AST/SGOT) Alanine Aminotransferase 41 U/L (ALT/SGPT) Alkaline Phosphatase 100 U/L Total Protein 9.1 GM/DL Albumin 4.5 GM/DL Salicylates Level LESS THAN 1.7 MG/DL Urine Opiates Screen NEG Acetaminophen Level LESS THAN 2.0 MCG/ML Urine Barbiturates Screen NEG Urine Amphetamines Screen NEG Urine Benzodiazepines Screen NEG Urine Cocaine Screen NEG Urine Cannabinoids Screen NEG Ethyl Alcohol Level 322 MG/DL [facility] Medical Decision Making Medical Screen Exam Complete: Yes Emergency Medical Condition: Yes Medical Record Reviewed: Yes Differential Diagnosis Depression with suicidal ideations, versus substance induced mood disorder, versus exacerbation of PTSD Narrative Course During the course of the patients emergency department visit, the patients history, examination, and differential diagnosis were reviewed with the patient. The patient had IV access obtained and blood work sent for analysis. The patient was provided Seroquel by mouth, as he reports being on this in the past and doing well previously. He was restarted back on the medication and 50 mg by mouth times one now. The patients laboratory studies were reviewed and remarkable for a CBC that is remarkable for thrombocytopenia with a platelet of 111, CMP is remarkable for an AST of 39 and a total protein 9.1, total protein 9.1, urinalysis within normal limits, salicylate less than 1.7, acetaminophen less than 2, urine drug screen is negative, alcohol level CCCXXII. The patient has been medically cleared for admission to the psychiatric service under a Gunter act. Diagnosis Primary Impression: Depression with suicidal ideation Additional Impression: Acute alcohol intoxication Qualified Code: F10.129 - Acute alcohol intoxication, with unspecified complication Florinda Rutherford MD Jun 29, 2016 21:21
[2016-06-29] MEDS ORDERED: QUEtiapine FUMARATE 25 MG TAB PO ONE (21:45)
[2016-06-29 21:47] LABS: AUTOMATED NEUTROPHIL # 6.6 TH/MM3 (1.8-7.7); BASOPHIL % 0.4 % (0.0-2.0); EOSINOPHIL % 0.5 % (0.0-4.0); HEMO FLAGS DIFF FINAL; LYMPH % 19.7 % (9.0-44.0); LYMPHOCYTE # 1.7 TH/MM3 (1.0-4.8); MEAN CELL VOLUME 86.5 FL (80.0-100.0); MEAN CORPUSCULAR HEMOGLOBIN 29.4 PG (27.0-34.0); MONO % 3.4 % (0.0-8.0); PLATELET COUNT 111 TH/MM3 (150-450); RED BLOOD COUNT 4.85 MIL/MM3 (4.50-5.90); RED CELL DISTRIBUTION WIDTH 15.8 % (11.6-17.2); WHITE BLOOD COUNT 8.7 TH/MM3 (4.0-11.0)
[2016-06-29 21:48] LABS: BLOOD, URINE NEG (NEG); GLUCOSE,URINE NEG (NEG); KETONE, URINE NEG (NEG); NITRITE,URINE NEG (NEG); URINE COLOR COLORLESS (YELLW/STRAW)
[2016-06-29 21:50] LABS: COMMENT (UR) CULT NOT INDICATED; CULTURE IF INDICATED CULT NOT INDICATED
[2016-06-29 21:55] LABS: AMPHETAMINE, URINE NEG (NEG); BARBITURATES, URINE NEG (NEG); COCAINE, URINE NEG (NEG)
[2016-06-29 22:03] LABS: ANION GAP 12 MEQ/L (5-15)
[2016-06-29 22:06] LABS: ALKALINE PHOSPHATASE 100 U/L (45-117); ALT (GPT) 41 U/L (12-78); AST (GOT) 39 U/L (15-37); BICARBONATE 25.2 MEQ/L (21.0-32.0); BLOOD UREA NITROGEN 10 MG/DL (7-18); CHLORIDE 101 MEQ/L (98-107); GLOMERULAR FILTRATION RATE 93 ML/MIN (>89); POTASSIUM 3.8 MEQ/L (3.5-5.1); SODIUM (NA) 138 MEQ/L (136-145); TOTAL BILIRUBIN ADULT 0.4 MG/DL (0.2-1.0)
[2016-06-29 22:23] LABS: ACETAMINOPHEN LESS THAN 2.0 MCG/ML (10.0-30.0)
== END 2016-06-30 03:01 ==
LOC: NEPE 20:18 → NEPB 06-30 03:01
DX: F32.9 Major depressive disorder, single episode, unspecified (principal); F10.129 Alcohol abuse with intoxication, unspecified; Y90.8 Blood alcohol level of 240 mg/100 ml or more
CPT/HCPCS: 80053; 80307; 80320; 80329; 81001; 85025; 99283; G0480

== ENCOUNTER 2016-07-25 20:59 | Emergency (ER) | payer OTHER ==
[~2016-07-25] VITALS: Ht 190.5 cm; Wt 94.0 kg
[2016-07-25 21:09] VITALS: BP 133/88; PULSE 100; RESP 17; TEMP 98.9; O2SAT 94
[2016-07-25] MEDS ORDERED: IBUPROFEN 600 MG TAB PO ONE (22:15)
[2016-07-25 22:26] LABS: BASOPHIL % 0.2 % (0.0-2.0); EOSINOPHIL % 0.6 % (0.0-4.0); HEMATOCRIT 40.1 % (39.0-51.0); HEMO FLAGS DIFF FINAL; LYMPH % 24.5 % (9.0-44.0); LYMPHOCYTE # 1.4 TH/MM3 (1.0-4.8); MEAN CELL VOLUME 88.8 FL (80.0-100.0); MEAN CORPUSCULAR HEMOGLOBIN 31.3 PG (27.0-34.0); MEAN CORPUSCULAR HGB CONC 35.3 % (32.0-36.0); MONO % 7.1 % (0.0-8.0); NEUT % 67.6 % (16.0-70.0); PLATELET COUNT 114 TH/MM3 (150-450); RED BLOOD COUNT 4.52 MIL/MM3 (4.50-5.90); RED CELL DISTRIBUTION WIDTH 16.3 % (11.6-17.2); WHITE BLOOD COUNT 5.9 TH/MM3 (4.0-11.0)
--- NOTE | 2016-07-25 22:26 | PD ---
HPI Chief Complaint: Psychiatric Symptoms Time Seen by Provider: 22:00 Travel History International Travel<30 days: No Contact w/Intl Traveler<30days: No Traveled to known affect area: No History of Present Illness HPI 51-year-old male with history of alcohol abuse and depression presents to the emergency room under a Gunter act for evaluation of suicidal ideation. Patient is well-known to the emergency room for similar presentations in the past. He called the police department stating he was suicidal with a plan to hang himself but someone "stole the rope" yesterday. He drinks approximately 144 ounces of wine per day including today. Reports occasional marijuana use. Denies any other illicit drug use. He reports history of heart attack for which he is supposed to be taking medications but he is noncompliant. He is also supposed to be taking antidepressants and Seroquel but is not doing so. Patient complains of left elbow pain and swelling for the past 3 days. States he fell on the elbow when he was drunk but does not remember it. The swelling has gotten smaller in size but tighter causing increased pain with extension. Denies upper extremity paresthesias or weakness. PFSH Past Medical History Hx Anticoagulant Therapy: No ADHD: Yes Arthritis: No Asthma: No Autoimmune Disease: No Anxiety: Yes Depression: Yes Heart Rhythm Problems: Yes Cardiovascular Problems: Yes ([place] ON DECEMBER 21 2015) High Cholesterol: Yes Chemotherapy: No Chest Pain: Yes Congestive Heart Failure: No COPD: No Cerebrovascular Accident: No Diminished Hearing: No Endocrine: No Gastrointestinal Disorders: Yes (ACID REFLUX) GERD: Yes Genitourinary: No Hepatitis: No Hiatal Hernia: No Heparin Induced Thrombocytopen: No Hypertension: Yes (HX OF, NOT ON MEDS) Immune Disorder: No Implanted Vascular Access Dvce: No Kidney Stones: No Medical other: No Musculoskeletal: Yes (FRACTURED L HAND) Neurologic: Yes (LEFT HAND GOES NUMB) Psychiatric: Yes Reproductive: No Respiratory: No Immunizations Current: Yes Migraines: No Myocardial Infarction: Yes (01/02) Radiation Therapy: No Renal Failure: No Sickle Cell Disease: No Sleep Apnea: No Thyroid Disease: No Ulcer: No Past Surgical History 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 Reported Meds & Prescriptions Reported Meds & Active Scripts Active Reported Seroquel (Quetiapine Fumarate) 300 Mg Tab 300 Mg PO BID Prozac (Fluoxetine HCl) 40 Mg Cap 40 Cap PO DAILY Review of Systems Except as stated in HPI: all other systems reviewed are Neg Physical Exam Narrative GENERAL: Well-nourished, well-developed male in no acute distress. Afebrile. Ambulatory. SKIN: Warm and dry. Mild erythema over the olecranon bursitis. No significant erythema or increased warmth. HEAD: Normocephalic. EYES: No scleral icterus. No injection or drainage. NECK: Supple, trachea midline. No JVD or lymphadenopathy. CARDIOVASCULAR: Regular rate and rhythm without murmurs, gallops, or rubs. RESPIRATORY: Breath sounds equal bilaterally. No accessory muscle use. EXTREMITY: Left elbow mildly tender to palpation. Patient can extend to approximately 145 and flex to 45. Moderate olecranon bursitis present. 2+ radial pulse. Radial, ulnar, and median nerves intact. Data Data Last Documented VS Vital Signs Date Time Temp Pulse Resp B/P Pulse Ox O2 Delivery O2 Flow Rate FiO2 07/26/16 22:06 91 18 133/84 99 Room Air 07/25/16 21:09 98.9 Orders Complete Blood Count With Diff (07/25/16 22:03) Basic Metabolic Panel (Bmp) (07/25/16 22:03) Drug Screen, Random Urine (07/25/16 22:03) Alcohol (Ethanol) (07/25/16 22:03) Psych Screen (07/25/16 22:03) Elbow, Limited (Ap&Lat) (07/25/16 ) Ibuprofen (Motrin) (07/25/16 22:15) Alcohol Withdrawal Asmt-Ciwa ONCE (07/25/16 23:32) Flumazenil Inj (Romazicon Inj) (07/25/16 23:45) Lorazepam (Ativan) (07/25/16 23:45) Lorazepam Inj (Ativan Inj) (07/25/16 23:45) Lorazepam (Ativan) (07/25/16 23:45) Lorazepam Inj (Ativan Inj) (07/25/16 23:45) Lorazepam Inj (Ativan Inj) (07/25/16 23:45) Lorazepam Inj (Ativan Inj) (07/25/16 23:45) Diet Regular Basic (07/26/16 Breakfast) Diet Regular Basic (07/26/16 Lunch) Diet Regular Basic (07/26/16 Dinner) Labs Laboratory Tests Test 07/25/16 07/26/16 22:00 10:10 White Blood Count 5.9 TH/MM3 Red Blood Count 4.52 MIL/MM3 Hemoglobin 14.1 GM/DL Hematocrit 40.1 % Mean Corpuscular Volume 88.8 FL Mean Corpuscular Hemoglobin 31.3 PG Mean Corpuscular Hemoglobin 35.3 % Concent Red Cell Distribution Width 16.3 % Platelet Count 114 TH/MM3 Mean Platelet Volume 7.5 FL Neutrophils (%) (Auto) 67.6 % Lymphocytes (%) (Auto) 24.5 % Monocytes (%) (Auto) 7.1 % Eosinophils (%) (Auto) 0.6 % Basophils (%) (Auto) 0.2 % Neutrophils # (Auto) 4.0 TH/MM3 Lymphocytes # (Auto) 1.4 TH/MM3 Monocytes # (Auto) 0.4 TH/MM3 Eosinophils # (Auto) 0.0 TH/MM3 Basophils # (Auto) 0.0 TH/MM3 CBC Comment DIFF FINAL Differential Comment Sodium Level 141 MEQ/L Potassium Level 4.2 MEQ/L Chloride Level 104 MEQ/L Carbon Dioxide Level 24.7 MEQ/L Anion Gap 12 MEQ/L Blood Urea Nitrogen 13 MG/DL Creatinine 1.06 MG/DL Estimat Glomerular Filtration 74 ML/MIN Rate Random Glucose 148 MG/DL Calcium Level 8.7 MG/DL Ethyl Alcohol Level 365 MG/DL Urine Opiates Screen NEG Urine Barbiturates Screen NEG Urine Amphetamines Screen NEG Urine Benzodiazepines Screen NEG Urine Cocaine Screen NEG Urine Cannabinoids Screen POS MDM Medical Decision Making Medical Screen Exam Complete: Yes Emergency Medical Condition: Yes Medical Record Reviewed: Yes Differential Diagnosis Alcohol intoxication versus malingering versus major depression versus olecranon bursitis versus cellulitis versus septic arthritis unlikely Narrative Course 51-year-old male history of alcoholism and depression presents to the emergency room under Gunter act for psychiatric evaluation of suicidal ideation. His plan is to hang himself but somebody stole the rope. Patient drank 144 ounces of wine today. He is alert and oriented. Answering questions appropriately. Vital signs stable. Physical exam reveals olecranon bursitis of the left elbow. Patient reports falling on it approximately 3 days ago. No evidence of cellulitis or septic arthritis at this time. X-ray pending. CBC unremarkable. BMP, drug screen, and ETOH ordered and pending. Patient signed out to nighttime provider. Diagnosis Primary Impression: Medical clearance for psychiatric admission Additional Impression: Olecranon bursitis of left elbow Condition: Stable Johanna Sosa Jul 25, 2016 22:26
--- NOTE | 2016-07-25 23:05 | RADRPT ---
EXAM DATE/TIME: 07/25/2016 22:40 [place] COMPARISON: No previous studies available for comparison. INDICATIONS : Left posterior elbow pain for several days. No known injury. MEDICAL HISTORY : None. SURGICAL HISTORY : None. ENCOUNTER: Initial ACUITY: 1 day PAIN SCORE: 6/10 LOCATION: Left posterior elbow. FINDINGS: Bone density normal. No effusion. No fracture or dislocation. Prominent soft tissue swelling posterio r to the olecranon is noted likely related to bursitis. CONCLUSION: Prominent soft tissue swelling posterior to the olecranon may be seen with bursitis, cellulitis also in the differential. Pedro Espino MD on July 25, 2016 at 23:03 Board Certified Radiologist. This report was verified electronically.
[2016-07-25 23:10] LABS: BICARBONATE 24.7 MEQ/L (21.0-32.0); POTASSIUM 4.2 MEQ/L (3.5-5.1)
--- NOTE | 2016-07-25 23:37 | PD ---
Physical Exam Time Seen by Provider: 23:30 Data Data Last Documented VS Vital Signs Date Time Temp Pulse Resp B/P Pulse Ox O2 Delivery O2 Flow Rate FiO2 07/25/16 21:09 98.9 100 17 133/88 94 Orders Complete Blood Count With Diff (07/25/16 22:03) Basic Metabolic Panel (Bmp) (07/25/16 22:03) Drug Screen, Random Urine (07/25/16 22:03) Alcohol (Ethanol) (07/25/16 22:03) Psych Screen (07/25/16 22:03) Elbow, Limited (Ap&Lat) (07/25/16 ) Ibuprofen (Motrin) (07/25/16 22:15) Alcohol Withdrawal Asmt-Ciwa ONCE (07/25/16 23:32) Flumazenil Inj (Romazicon Inj) (07/25/16 23:45) Lorazepam (Ativan) (07/25/16 23:45) Lorazepam Inj (Ativan Inj) (07/25/16 23:45) Lorazepam (Ativan) (07/25/16 23:45) Lorazepam Inj (Ativan Inj) (07/25/16 23:45) Lorazepam Inj (Ativan Inj) (07/25/16 23:45) Lorazepam Inj (Ativan Inj) (07/25/16 23:45) Labs Laboratory Tests Test 07/25/16 22:00 White Blood Count 5.9 TH/MM3 Red Blood Count 4.52 MIL/MM3 Hemoglobin 14.1 GM/DL Hematocrit 40.1 % Mean Corpuscular Volume 88.8 FL Mean Corpuscular Hemoglobin 31.3 PG Mean Corpuscular Hemoglobin 35.3 % Concent Red Cell Distribution Width 16.3 % Platelet Count 114 TH/MM3 Mean Platelet Volume 7.5 FL Neutrophils (%) (Auto) 67.6 % Lymphocytes (%) (Auto) 24.5 % Monocytes (%) (Auto) 7.1 % Eosinophils (%) (Auto) 0.6 % Basophils (%) (Auto) 0.2 % Neutrophils # (Auto) 4.0 TH/MM3 Lymphocytes # (Auto) 1.4 TH/MM3 Monocytes # (Auto) 0.4 TH/MM3 Eosinophils # (Auto) 0.0 TH/MM3 Basophils # (Auto) 0.0 TH/MM3 CBC Comment DIFF FINAL Differential Comment Sodium Level 141 MEQ/L Potassium Level 4.2 MEQ/L Chloride Level 104 MEQ/L Carbon Dioxide Level 24.7 MEQ/L Anion Gap 12 MEQ/L Blood Urea Nitrogen 13 MG/DL Creatinine 1.06 MG/DL Estimat Glomerular Filtration 74 ML/MIN Rate Random Glucose 148 MG/DL Calcium Level 8.7 MG/DL Ethyl Alcohol Level 365 MG/DL [facility] Medical Record Reviewed: Yes Supervised Visit with COCO: No Narrative Course I assumed care of this patient from previous provider to follow up on labs and imaging studies. Please see her dictation for complete history of present illness. The patient's lab work is notable for an alcohol level of 365. He is a daily drinker. CIWA protocols initiated. X-ray imaging of the left elbow reveals prominent soft tissue swelling posterior to the olecranon. Examination reveals left olecranon bursitis which is not septic on examination. I discussed with the patient the treatment for olecranon bursitis is typically conservative treatment including ice packs, NSAIDs, time and I reassured the patient. I did also discuss with him signs and symptoms of a septic bursitis which would warrant returning to the emergency room he verbalizes understanding. The patient is medically cleared for psychiatric disposition. Diagnosis Primary Impression: Medical clearance for psychiatric admission Additional Impression: Olecranon bursitis of left elbow Condition: Stable Kam Reina Jul 25, 2016 23:37
[2016-07-25] MEDS ORDERED: LORazepam 2 MG/ML VIAL IV PUSH PRN ×4 (23:45)
[2016-07-25] MEDS ORDERED: FLUMAZENIL 0.5 MG/5 ML VIAL IV PUSH PRN (23:45)
[2016-07-26 03:56] VITALS: BP 114/71; PULSE 100; RESP 16; O2SAT 95
[2016-07-26] MEDS: LORazepam 2 MG TAB PO PRN ×2 (04:55→11:03)
[2016-07-26 06:30] VITALS: BP 127/72; PULSE 102; RESP 19; O2SAT 98
[2016-07-26] MEDS: LORazepam 1 MG TAB PO PRN ×3 (06:50→20:00)
[2016-07-26 09:48] VITALS: BP 126/72; PULSE 121; RESP 17; O2SAT 95
[2016-07-26 10:34] LABS: AMPHETAMINE, URINE NEG (NEG); BARBITURATES, URINE NEG (NEG); COCAINE, URINE NEG (NEG)
[2016-07-26 13:29] VITALS: BP 131/88; PULSE 117; RESP 18; O2SAT 97
[2016-07-26 14:00] VITALS: BP 139/88; PULSE 100; RESP 20
[2016-07-26 22:06] VITALS: BP 133/84; PULSE 91; RESP 18; O2SAT 99
== END 2016-07-27 02:06 ==
LOC: NEPA 20:59 → NEPJ 07-27 02:06
DX: M70.32 Other bursitis of elbow, left elbow (principal); F10.220 Alcohol dependence with intoxication, uncomplicated; Y90.8 Blood alcohol level of 240 mg/100 ml or more; I25.2 Old myocardial infarction; F19.10 Other psychoactive substance abuse, uncomplicated; Y99.9 Unspecified external cause status; E78.00 Pure hypercholesterolemia, unspecified; W19.XXXA Unspecified fall, initial encounter; Y93.89 Activity, other specified; Z72.0 Tobacco use
CPT/HCPCS: 73070; 80048; 80307; 80320; 85025; 99285

== ENCOUNTER 2016-08-11 19:56 | Emergency (ER) | payer OTHER ==
[~2016-08-11 19:56] MED LIST changes: -CHLO10CA2 PO; -METO25TA3 PO; -MIRTA15 PO; -QUET1TAB11 PO
[2016-08-11 20:51] VITALS: BP 133/88; PULSE 102; RESP 20; TEMP 98.4; O2SAT 97
[2016-08-11 21:06] LABS: AUTOMATED NEUTROPHIL # 2.2 TH/MM3 (1.8-7.7); BASOPHIL % 0.6 % (0.0-2.0); EOSINOPHIL % 0.6 % (0.0-4.0); HEMATOCRIT 39.6 % (39.0-51.0); HEMO FLAGS DIFF FINAL; LYMPH % 40.3 % (9.0-44.0); LYMPHOCYTE # 1.7 TH/MM3 (1.0-4.8); MEAN CELL VOLUME 90.3 FL (80.0-100.0); MEAN CORPUSCULAR HEMOGLOBIN 31.8 PG (27.0-34.0); MEAN CORPUSCULAR HGB CONC 35.2 % (32.0-36.0); MONO % 5.7 % (0.0-8.0); NEUT % 52.8 % (16.0-70.0); PLATELET COUNT 178 TH/MM3 (150-450); RED BLOOD COUNT 4.39 MIL/MM3 (4.50-5.90); RED CELL DISTRIBUTION WIDTH 17.1 % (11.6-17.2); WHITE BLOOD COUNT 4.1 TH/MM3 (4.0-11.0)
--- NOTE | 2016-08-11 21:07 | PD ---
HPI Chief Complaint: Psychiatric Symptoms Time Seen by Provider: 21:06 Travel History International Travel<30 days: No Contact w/Intl Traveler<30days: No Traveled to known affect area: No History of Present Illness HPI 51-year-old male with a history of hypertension, depression, anxiety is brought to the emergency department under Gunter act for evaluation of suicidal ideations. Per the Gunter act report the patient is stating he wants to kill himself by either jumping off of a bridge or having himself. The patient admits to suicidal ideations and tells me "I'm here because someone stole my rope that was going to hang myself with." States that he feels as though he can 't do anything right and that he wants to end his life. He admits to drinking a large amount of alcohol today. Denies any drug use. Denies any attempts to harm himself. Denies any ingestion of substances in an attempt to harm himself. Denies any medical complaints. Denies any chest pain, shortness of breath, abdominal pain, nausea, vomiting, diarrhea, lightheadedness, dizziness. No other complaints. PFSH Past Medical History Hx Anticoagulant Therapy: No ADHD: Yes Arthritis: No Asthma: No Autoimmune Disease: No Anxiety: Yes Depression: Yes Heart Rhythm Problems: Yes Cardiovascular Problems: Yes ([place] ON DECEMBER 21 2015) High Cholesterol: Yes Chemotherapy: No Chest Pain: Yes Congestive Heart Failure: No COPD: No Cerebrovascular Accident: No Diminished Hearing: No Endocrine: No Gastrointestinal Disorders: Yes (ACID REFLUX) GERD: Yes Genitourinary: No Hepatitis: No Hiatal Hernia: No Heparin Induced Thrombocytopen: No Hypertension: Yes (HX OF, NOT ON MEDS) Immune Disorder: No Implanted Vascular Access Dvce: No Kidney Stones: No Musculoskeletal: Yes (FRACTURED L HAND) Neurologic: Yes (LEFT HAND GOES NUMB) Psychiatric: Yes Reproductive: No Respiratory: No Immunizations Current: Yes Migraines: No Myocardial Infarction: Yes (01/02) Radiation Therapy: No Renal Failure: No Sickle Cell Disease: No Sleep Apnea: No Thyroid Disease: No Ulcer: No Past Surgical History 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 Reported Meds & Prescriptions Reported Meds & Active Scripts Active Reported Seroquel (Quetiapine Fumarate) 300 Mg Tab 300 Mg PO BID Prozac (Fluoxetine HCl) 40 Mg Cap 40 Cap PO DAILY Review of Systems Except as stated in HPI: all other systems reviewed are Neg Physical Exam Narrative GENERAL: Well-nourished and well-developed male patient in no acute distress. SKIN: Warm and dry. HEAD: Normocephalic and atraumatic. EYES: No injection, drainage, or hyphema noted. PERRLA. EOMI. ENT: No nasal drainage noted. Oropharynx is clear. NECK: Supple and the trachea is midline. CARDIOVASCULAR: Regular rate and rhythm. RESPIRATORY: Breath sounds are equal bilaterally with no accessory muscle use, wheezing, rhonchi, or crackles. GASTROINTESTINAL: Abdomen is soft, non-tender, and nondistended. MUSCULOSKELETAL: No obvious deformities, swelling, cyanosis, or ecchymosis is present throughout the upper and lower extremities. Patient has full range of motion without any signs of neurovascular compromise. NEUROLOGICAL: Awake, alert, and oriented. Normal speech and gait. Cranial nerves are grossly intact. Data Data Last Documented VS Vital Signs Date Time Temp Pulse Resp B/P Pulse Ox O2 Delivery O2 Flow Rate FiO2 08/11/16 20:51 98.4 102 20 133/88 97 Orders Complete Blood Count With Diff (08/11/16 20:45) Comprehensive Metabolic Panel (08/11/16 20:45) Psych Screen (08/11/16 20:45) Drug Screen, Random Urine (08/11/16 20:45) Alcohol (Ethanol) (08/11/16 20:45) Labs Laboratory Tests Test 08/11/16 20:50 White Blood Count 4.1 TH/MM3 Red Blood Count 4.39 MIL/MM3 Hemoglobin 14.0 GM/DL Hematocrit 39.6 % Mean Corpuscular Volume 90.3 FL Mean Corpuscular Hemoglobin 31.8 PG Mean Corpuscular Hemoglobin 35.2 % Concent Red Cell Distribution Width 17.1 % Platelet Count 178 TH/MM3 Mean Platelet Volume 7.3 FL Neutrophils (%) (Auto) 52.8 % Lymphocytes (%) (Auto) 40.3 % Monocytes (%) (Auto) 5.7 % Eosinophils (%) (Auto) 0.6 % Basophils (%) (Auto) 0.6 % Neutrophils # (Auto) 2.2 TH/MM3 Lymphocytes # (Auto) 1.7 TH/MM3 Monocytes # (Auto) 0.2 TH/MM3 Eosinophils # (Auto) 0.0 TH/MM3 Basophils # (Auto) 0.0 TH/MM3 CBC Comment DIFF FINAL Differential Comment Sodium Level 140 MEQ/L Potassium Level 4.0 MEQ/L Chloride Level 104 MEQ/L Carbon Dioxide Level 27.7 MEQ/L Anion Gap 8 MEQ/L Blood Urea Nitrogen 6 MG/DL Creatinine 0.97 MG/DL Estimat Glomerular Filtration 82 ML/MIN Rate Random Glucose 90 MG/DL Calcium Level 8.8 MG/DL Total Bilirubin 0.2 MG/DL Aspartate Amino Transf 107 U/L (AST/SGOT) Alanine Aminotransferase 121 U/L (ALT/SGPT) Alkaline Phosphatase 117 U/L Total Protein 8.3 GM/DL Albumin 3.8 GM/DL Ethyl Alcohol Level 325 MG/DL MDM Medical Decision Making Medical Screen Exam Complete: Yes Emergency Medical Condition: Yes Differential Diagnosis Differential: Depression versus adjustment reaction versus anxiety versus PTSD versus psychosis NOS versus mood disorder NOS versus substance induced mood disorder versus ODD versus adjustment reaction versus schizophrenia versus bipolar disorder versus schizoaffective versus electrolyte abnormality versus dementia versus malingering. Narrative Course Patient presents under a Gunter act. Physical examination and vital signs are essentially unremarkable. Patient has no medical complaints to report. Psych screen has been ordered. CBC is unremarkable. CMP shows that there are elevated LFTs, likely secondary to alcohol abuse. EtOH is 325. The patient will be medically cleared for psychiatric evaluation and disposition. Diagnosis Primary Impression: Substance induced mood disorder Pushpa Navarrete Aug 11, 2016 21:07
[2016-08-11 21:31] LABS: ANION GAP 8 MEQ/L (5-15)
[2016-08-11 21:46] LABS: ALKALINE PHOSPHATASE 117 U/L (45-117); ALT (GPT) 121 U/L (12-78); AST (GOT) 107 U/L (15-37); BICARBONATE 27.7 MEQ/L (21.0-32.0); BLOOD UREA NITROGEN 6 MG/DL (7-18); CHLORIDE 104 MEQ/L (98-107); GLOMERULAR FILTRATION RATE 82 ML/MIN (>89); SODIUM (NA) 140 MEQ/L (136-145); TOTAL BILIRUBIN ADULT 0.2 MG/DL (0.2-1.0)
[2016-08-12 00:50] VITALS: BP 121/84; PULSE 72; RESP 16; O2SAT 94
[2016-08-12 04:50] VITALS: BP 119/81; PULSE 71; RESP 16; O2SAT 93
[2016-08-12 08:12] VITALS: BP_SYST 131; BP_DIAS 8; BP_DIAS 87; PULSE 88; RESP 17; O2SAT 94
--- NOTE | 2016-08-12 12:16 | PD ---
History of Present Illness Chief Complaint: Psychiatric Symptoms Time Seen by Provider: 11:45 Travel History International Travel<30 Days: No Contact w/Intl Traveler<30days: No Known affected area: No Legal Status Legal Status: Gunter Act Gunter Act Signed By: Vanessa Oliver History of Present Illness: This is a 51-year-old male who was Gunter acted last night for suicidal threats. In fact, the patient stated he was going to hang himself except someone stole his rope! At this time, the patient admits to being a serious blackout alcoholic drinker. He denies being suicidal or homicidal or experiencing any psychotic symptoms. He is calm and cooperative at this time. His cognition is intact. He verbally contracts for safety. He would like to leave the hospital and this physician does not find that he meets Gunter act criteria or that he meets hospital admission criteria. PFSH Past Medical History Medical History: Denies Significant Hx Hx Anticoagulant Therapy: No ADHD: Yes Arthritis: No Asthma: No Autoimmune Disease: No Anxiety: Yes Depression: Yes Heart Rhythm Problems: Yes Cardiovascular Problems: Yes ([place] ON DECEMBER 21 2015) High Cholesterol: Yes Chemotherapy: No Chest Pain: Yes Congestive Heart Failure: No COPD: No Cerebrovascular Accident: No Diminished Hearing: No Endocrine: No Gastrointestinal Disorders: Yes (ACID REFLUX) GERD: Yes Genitourinary: No Hepatitis: No Hiatal Hernia: No Heparin Induced Thrombocytopen: No Hypertension: Yes (HX OF, NOT ON MEDS) Immune Disorder: No Implanted Vascular Access Dvce: No Kidney Stones: No Musculoskeletal: Yes (FRACTURED L HAND) Neurologic: Yes (LEFT HAND GOES NUMB) Psychiatric: Yes Reproductive: No Respiratory: No Immunizations Current: Yes Migraines: No Myocardial Infarction: Yes (01/02) Radiation Therapy: No Renal Failure: No Sickle Cell Disease: No Sleep Apnea: No Thyroid Disease: No Ulcer: No Past Surgical History Abdominal Surgery: No AICD: No Arteriovenous Shunt: No Cardiac Surgery: No Ear Surgery: No Endocrine Surgery: No Eye Surgery: No Genitourinary Surgery: No Gynecologic Surgery: No Hysterectomy: No Insulin Pump: No Joint Replacement: No Neurologic Surgery: No Oral Surgery: Yes (TOOTH REMOVAL) Pacemaker: No Thoracic Surgery: No Psychiatric History Psychiatric History Hx Psychiatric Treatment: HX OF ANXIETY AND DEPRESSION History of Inpatient Treatment: Yes Social History Hx Alcohol Use: Yes (DAILY) Hx Tobacco Use: Yes Hx Substance Use: Yes Substance Use Type: Alcohol, Marijuana, Nicotine/Cigarettes Other Substances Used: DAILY DRINKER Hx of Substance Use Treatment: Yes Allergies-Medications (Allergen,Severity, Reaction): Coded Allergies: *MDRO Multi-Drug Resistant Organism (Verified Adverse Reaction, Unknown, ) MRSA (arm wound) 01/2015 Reported Meds & Prescriptions Reported Meds & Active Scripts Active Reported Seroquel (Quetiapine Fumarate) 300 Mg Tab 300 Mg PO BID Prozac (Fluoxetine HCl) 40 Mg Cap 40 Cap PO DAILY Review of Systems Except as stated in HPI: all other systems reviewed are Neg Exam Alert: Yes [place]: Person, Place, Date, Situation Mood: Anxious, Calm Affect: Euthymic Speech: Clear, Logical Eye Contact: Normal Memory Intact: Immediate, Recent, Remote Delusions: No Insight/Judgement Impaired but adequate and most likely baseline. [facility] Medical Decision Making Medical Record Reviewed: Yes Assessment/Plan Patient's Gunter act was lifted and he was allowed to go home per his request. He was advised to stop drinking alcohol and/or seek treatment for alcoholism. Orders Complete Blood Count With Diff (08/11/16 20:45) Comprehensive Metabolic Panel (08/11/16 20:45) Psych Screen (08/11/16 20:45) Drug Screen, Random Urine (08/11/16 20:45) Alcohol (Ethanol) (08/11/16 20:45) Diet Regular Basic (08/12/16 Breakfast) Results Vital Signs Date Time Temp Pulse Resp B/P Pulse Ox O2 Delivery O2 Flow Rate FiO2 08/12/16 08:12 88 17 131/87 94 Room Air 08/12/16 04:50 71 16 119/81 93 Room Air 08/12/16 00:50 72 16 121/84 94 Room Air 08/11/16 20:51 98.4 102 20 133/88 97 Laboratory Tests Test 08/11/16 20:50 White Blood Count 4.1 Red Blood Count 4.39 Hemoglobin 14.0 Hematocrit 39.6 Mean Corpuscular Volume 90.3 Mean Corpuscular Hemoglobin 31.8 Mean Corpuscular Hemoglobin 35.2 Concent Red Cell Distribution Width 17.1 Platelet Count 178 Mean Platelet Volume 7.3 Neutrophils (%) (Auto) 52.8 Lymphocytes (%) (Auto) 40.3 Monocytes (%) (Auto) 5.7 Eosinophils (%) (Auto) 0.6 Basophils (%) (Auto) 0.6 Neutrophils # (Auto) 2.2 Lymphocytes # (Auto) 1.7 Monocytes # (Auto) 0.2 Eosinophils # (Auto) 0.0 Basophils # (Auto) 0.0 CBC Comment DIFF FINAL Differential Comment Sodium Level 140 Potassium Level 4.0 Chloride Level 104 Carbon Dioxide Level 27.7 Anion Gap 8 Blood Urea Nitrogen 6 Creatinine 0.97 Estimat Glomerular Filtration 82 Rate Random Glucose 90 Calcium Level 8.8 Total Bilirubin 0.2 Aspartate Amino Transf 107 (AST/SGOT) Alanine Aminotransferase 121 (ALT/SGPT) Alkaline Phosphatase 117 Total Protein 8.3 Albumin 3.8 Ethyl Alcohol Level 325 Diagnosis Primary Impression: Alcohol abuse Departure Forms: Tests/Procedures Patient Instructions: General Instructions, Mood Disorders (ED), Abuse of Alcohol (ED) Disposition: 01 DISCHARGE HOME Condition: Stable Corey Vanegas MD Aug 12, 2016 12:16
== END 2016-08-12 13:46 | disposition home or self-care (01) ==
LOC: NEPA 19:56
DX: F10.129 Alcohol abuse with intoxication, unspecified (principal); Y90.8 Blood alcohol level of 240 mg/100 ml or more
CPT/HCPCS: 80053; 80320; 85025; 99283

== ENCOUNTER 2016-08-28 21:37 | Emergency (ER) | payer OTHER ==
[2016-08-28 21:45] VITALS: BP 151/75; PULSE 93; RESP 20; TEMP 97.9; O2SAT 95
[2016-08-29 00:29] LABS: AUTOMATED NEUTROPHIL # 2.8 TH/MM3 (1.8-7.7); BASOPHIL % 0.6 % (0.0-2.0); EOSINOPHIL # 0.1 TH/MM3 (0-0.4); HEMATOCRIT 39.3 % (39.0-51.0); LYMPH % 33.6 % (9.0-44.0); LYMPHOCYTE # 1.7 TH/MM3 (1.0-4.8); MEAN CORPUSCULAR HEMOGLOBIN 31.7 PG (27.0-34.0); MEAN CORPUSCULAR HGB CONC 34.5 % (32.0-36.0); MONO % 9.1 % (0.0-8.0); NEUT % 55.7 % (16.0-70.0); PLATELET COUNT 66 TH/MM3 (150-450); RED BLOOD COUNT 4.27 MIL/MM3 (4.50-5.90); RED CELL DISTRIBUTION WIDTH 17.6 % (11.6-17.2)
[2016-08-29 00:34] LABS: ANION GAP 13 MEQ/L (5-15)
[2016-08-29 00:37] LABS: ALKALINE PHOSPHATASE 109 U/L (45-117); ALT (GPT) 83 U/L (12-78); AST (GOT) 136 U/L (15-37); BICARBONATE 27.2 MEQ/L (21.0-32.0); BLOOD UREA NITROGEN 9 MG/DL (7-18); CHLORIDE 105 MEQ/L (98-107); GLOMERULAR FILTRATION RATE 73 ML/MIN (>89); POTASSIUM 3.7 MEQ/L (3.5-5.1); SODIUM (NA) 145 MEQ/L (136-145); TOTAL BILIRUBIN ADULT 0.2 MG/DL (0.2-1.0)
[2016-08-29 00:40] LABS: HEMO FLAGS AUTO DIFF
[2016-08-29 00:44] LABS: ACETAMINOPHEN LESS THAN 2.0 MCG/ML (10.0-30.0)
[2016-08-29 01:28] LABS: SCAN/DIFF AUTO DIFF CONFIRMED
--- NOTE | 2016-08-29 01:38 | PD ---
HPI Chief Complaint: Psychiatric Symptoms Time Seen by Provider: 01:33 Travel History International Travel<30 days: No Contact w/Intl Traveler<30days: No Traveled to known affect area: No History of Present Illness HPI Patient comes in voluntarily requesting psychiatric help for alcohol abuse and possible placement for detox. Patient's only medical concern is his left elbow bursitis ongoing for a while now. Patient denies doing anything for this. Patient reports pain is worse with movement. Patient reports he was seen previously for this and told it would improve over time, however the patient states it is not improved and he has not followed up. Patient denies any chest pain, shortness of breath, nausea, vomiting, pain, or fevers. Patient denies any trauma to the elbow. PFSH Past Medical History Hx Anticoagulant Therapy: No ADHD: Yes Arthritis: No Asthma: No Autoimmune Disease: No Anxiety: Yes Depression: Yes Heart Rhythm Problems: Yes Cardiovascular Problems: Yes ([place] ON DECEMBER 21 2015) High Cholesterol: Yes Chemotherapy: No Chest Pain: Yes Congestive Heart Failure: No COPD: No Cerebrovascular Accident: No Diminished Hearing: No Endocrine: No Gastrointestinal Disorders: Yes (ACID REFLUX) GERD: Yes Genitourinary: No Hepatitis: No Hiatal Hernia: No Heparin Induced Thrombocytopen: No Hypertension: Yes (HX OF, NOT ON MEDS) Immune Disorder: No Implanted Vascular Access Dvce: No Kidney Stones: No Musculoskeletal: Yes (FRACTURED L HAND) Neurologic: Yes (LEFT HAND GOES NUMB) Psychiatric: Yes Reproductive: No Respiratory: No Immunizations Current: Yes Migraines: No Myocardial Infarction: Yes (01/02) Radiation Therapy: No Renal Failure: No Sickle Cell Disease: No Sleep Apnea: No Thyroid Disease: No Ulcer: No Past Surgical History 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 Reported Meds & Prescriptions Reported Meds & Active Scripts Active Reported Seroquel (Quetiapine Fumarate) 300 Mg Tab 300 Mg PO BID Prozac (Fluoxetine HCl) 40 Mg Cap 40 Cap PO DAILY Review of Systems ROS Limitations: Intoxication Except as stated in HPI: all other systems reviewed are Neg Physical Exam Exam Limitations: Intoxication Narrative GENERAL: Well-developed, overly nourished, in no acute distress, and non-ill appearing. Agitated. SKIN: Warm and dry. HEAD: Atraumatic. Normocephalic. EYES: Pupils equal and round. EOMI. No scleral icterus. No injection or drainage. ENT: No nasal bleeding or discharge. Mucous membranes pink and moist. NECK: Trachea midline. Supple. No nuclear rigidity. CARDIOVASCULAR: Regular rate and rhythm. No murmur appreciated. RESPIRATORY: No accessory muscle use. No respiratory distress. Clear to auscultation. Breath sounds equal bilaterally. MUSCULOSKELETAL: No obvious deformities. No clubbing. No cyanosis. No edema. Full range of motion. Patient reports to palpation over his left elbow. A small fluid filled sac noted. It is afebrile and nonerythematous. Findings are consistent with noninfectious bursitis. Elbow : FROM and strength equal BL with passive flexion, extension, and pronation/supination. No laxity noted with varus and valgus maneuvers. Pulses equal BL distal to injury. Capillary refill less than 2 seconds distal to injury and equal BL. FROM distal to injury and equal BL. Strength distal to injury equal BL. NV intact distal to injury and equal BL. Flexion and extension of thumb equal BL. Equal strength and movement with abduction/adductions of BL fingers. New Media Strategist strength equal BL. NEUROLOGICAL: Awake and alert. No obvious cranial nerve deficits. Motor grossly within normal limits. Normal speech. PSYCHIATRIC: Agitated mood. Data Data Last Documented VS Vital Signs Date Time Temp Pulse Resp B/P Pulse Ox O2 Delivery O2 Flow Rate FiO2 08/29/16 10:52 98.7 99 16 121/88 98 Orders Complete Blood Count With Diff (08/28/16 23:33) Comprehensive Metabolic Panel (08/28/16 23:33) Psych Screen (08/28/16 23:33) Drug Screen, Random Urine (08/28/16 23:33) Alcohol (Ethanol) (08/28/16 23:33) Salicylates (Aspirin) (08/28/16 23:33) Tylenol (Acetaminophen) (08/28/16 23:33) Alcohol Withdrawal Asmt-Ciwa ONCE (08/29/16 01:38) Flumazenil Inj (Romazicon Inj) (08/29/16 01:45) Lorazepam (Ativan) (08/29/16 01:45) Lorazepam Inj (Ativan Inj) (08/29/16 01:45) Lorazepam (Ativan) (08/29/16 01:45) Lorazepam Inj (Ativan Inj) (08/29/16 01:45) Lorazepam Inj (Ativan Inj) (08/29/16 01:45) Lorazepam Inj (Ativan Inj) (08/29/16 01:45) Diet Regular Basic (08/29/16 Breakfast) Labs Laboratory Tests Test 08/28/16 08/28/16 08/29/16 22:15 23:20 01:30 White Blood Count 5.0 TH/MM3 Red Blood Count 4.27 MIL/MM3 Hemoglobin 13.5 GM/DL Hematocrit 39.3 % Mean Corpuscular Volume 92.0 FL Mean Corpuscular Hemoglobin 31.7 PG Mean Corpuscular Hemoglobin 34.5 % Concent Red Cell Distribution Width 17.6 % Platelet Count 66 TH/MM3 Mean Platelet Volume 7.7 FL Neutrophils (%) (Auto) 55.7 % Lymphocytes (%) (Auto) 33.6 % Monocytes (%) (Auto) 9.1 % Eosinophils (%) (Auto) 1.0 % Basophils (%) (Auto) 0.6 % Neutrophils # (Auto) 2.8 TH/MM3 Lymphocytes # (Auto) 1.7 TH/MM3 Monocytes # (Auto) 0.4 TH/MM3 Eosinophils # (Auto) 0.1 TH/MM3 Basophils # (Auto) 0.0 TH/MM3 CBC Comment AUTO DIFF Differential Comment AUTO DIFF CONFIRMED Sodium Level 145 MEQ/L Potassium Level 3.7 MEQ/L Chloride Level 105 MEQ/L Carbon Dioxide Level 27.2 MEQ/L Anion Gap 13 MEQ/L Blood Urea Nitrogen 9 MG/DL Creatinine 1.08 MG/DL Estimat Glomerular Filtration 73 ML/MIN Rate Random Glucose 85 MG/DL Calcium Level 8.2 MG/DL Total Bilirubin 0.2 MG/DL Aspartate Amino Transf 136 U/L (AST/SGOT) Alanine Aminotransferase 83 U/L (ALT/SGPT) Alkaline Phosphatase 109 U/L Total Protein 8.1 GM/DL Albumin 3.7 GM/DL Acetaminophen Level LESS THAN 2.0 MCG/ML Ethyl Alcohol Level 410 MG/DL Urine Opiates Screen NEG Urine Barbiturates Screen NEG Urine Amphetamines Screen NEG Urine Benzodiazepines Screen NEG Urine Cocaine Screen NEG Urine Cannabinoids Screen NEG Salicylates Level LESS THAN 1.7 MG/DL MDM Medical Decision Making Medical Screen Exam Complete: Yes Emergency Medical Condition: Yes Differential Diagnosis Alcohol intoxication, alcohol abuse, alcohol dependence, depression, bursitis, septic joint, other Narrative Course Patient was seen and examined. Labs were obtained and reviewed with the exception urine drug screen which is currently pending. Patient medically cleared for further treatment and evaluation by psych. Final disposition per psych. Patient in no obvious distress upon re-evaluation. Further instructions and recommendations were detailed in discharge paperwork. Pt ambulated without difficulty out of ED at discharge. Diagnosis Primary Impression: Alcohol abuse Additional Impressions: Olecranon bursitis of left elbow Acute alcohol intoxication Qualified Code: F10.120 - Acute alcohol intoxication, uncomplicated Patient Instructions: Abuse of Alcohol (ED), Elbow Bursitis (GEN), Elbow Bursitis Exercises (GEN), General Instructions Additional Instructions: Follow-up with your primary care physician and/or orthopedics regarding your bursitis this week. Use [id number] Tylenol and/or ibuprofen as needed for pain. Follow instructions on the packaging. Wear Dave wrap to support her left elbow and for comfort. Apply ice to your left elbow 20 minutes per hour as needed for pain.. Return to the emergency department if symptoms get worse. Condition: Stable Riley Hanks Aug 29, 2016 01:38
[2016-08-29] MEDS ORDERED: LORazepam 1 MG TAB PO PRN (01:45)
[2016-08-29] MEDS ORDERED: FLUMAZENIL 0.5 MG/5 ML VIAL IV PUSH PRN (01:45)
[2016-08-29] MEDS ORDERED: LORazepam 2 MG/ML VIAL IV PUSH PRN ×4 (01:45)
[2016-08-29] MEDS ORDERED: LORazepam 2 MG TAB PO PRN (01:45)
[2016-08-29 07:16] LABS: AMPHETAMINE, URINE NEG (NEG); BARBITURATES, URINE NEG (NEG); COCAINE, URINE NEG (NEG)
[2016-08-29 10:52] VITALS: BP 121/88; PULSE 99; RESP 16; TEMP 98.7; O2SAT 98
== END 2016-08-29 10:54 | disposition home or self-care (01) ==
LOC: NEPA 21:37
DX: F10.129 Alcohol abuse with intoxication, unspecified (principal); M70.22 Olecranon bursitis, left elbow; Y93.9 Activity, unspecified; Y90.8 Blood alcohol level of 240 mg/100 ml or more
CPT/HCPCS: 80053; 80307; 85025; 99283

== ENCOUNTER 2016-09-05 21:56 | Emergency (ER) | payer OTHER ==
[~2016-09-05] VITALS: Ht 182.9 cm; Wt 95.0 kg
--- NOTE | 2016-09-05 22:12 | PD ---
HPI Chief Complaint: Gunter act Time Seen by Provider: 21:59 Travel History International Travel<30 days: No Contact w/Intl Traveler<30days: No Traveled to known affect area: No History of Present Illness HPI The patient is a 51-year-old male who presents to the emergency department via police as a Gunter act. According to police affidavit the patient has been drinking heavily earlier today and made multiple comments in regards to suicide. The patient kept asking the precinct [place] police sergeant for his gun so he could shoot himself. The patient does have a history of depression and substance abuse with alcohol. The patient states he started to kill himself in the past by overdose, was unsuccessful. The patient states he started drinking heavily after his fiance . He does note a history of alcohol abuse and states he drank multiple bottles of her neck earlier today. He denies any illicit drug use. He denies any current physical complaints. PFSH Past Medical History Hx Anticoagulant Therapy: No ADHD: Yes Arthritis: No Asthma: No Autoimmune Disease: No Anxiety: Yes Depression: Yes Heart Rhythm Problems: Yes Cardiovascular Problems: Yes ([place] ON DECEMBER 21 2015) High Cholesterol: Yes Chemotherapy: No Chest Pain: Yes Congestive Heart Failure: No COPD: No Cerebrovascular Accident: No Diminished Hearing: No Endocrine: No Gastrointestinal Disorders: Yes (ACID REFLUX) GERD: Yes Genitourinary: No Hepatitis: No Hiatal Hernia: No Heparin Induced Thrombocytopen: No Hypertension: Yes (HX OF, NOT ON MEDS) Immune Disorder: No Implanted Vascular Access Dvce: No Kidney Stones: No Musculoskeletal: Yes (FRACTURED L HAND) Neurologic: Yes (LEFT HAND GOES NUMB) Psychiatric: Yes Reproductive: No Respiratory: No Immunizations Current: Yes Migraines: No Myocardial Infarction: Yes (01/02) Radiation Therapy: No Renal Failure: No Sickle Cell Disease: No Sleep Apnea: No Thyroid Disease: No Ulcer: No Past Surgical History 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 Reported Meds & Prescriptions Reported Meds & Active Scripts Active Reported Seroquel (Quetiapine Fumarate) 300 Mg Tab 300 Mg PO BID Prozac (Fluoxetine HCl) 40 Mg Cap 40 Cap PO DAILY Review of Systems Except as stated in HPI: all other systems reviewed are Neg General / Constitutional: No: Fever HENT: No: Lightheadedness Cardiovascular: No: Chest Pain or Discomfort Respiratory: No: Shortness of Breath Gastrointestinal: No: Nausea, Vomiting, Abdominal Pain Musculoskeletal: No: Weakness Psychiatric: Positive: Depression, Suicidal Ideations, Substance Abuse Physical Exam Narrative GENERAL: Awake, alert, pleasant 51-year-old male appears his stated age and appears intoxicated. SKIN: Warm and dry. HEAD: Atraumatic. Normocephalic. EYES: Injection bilateral.. ENT: No nasal bleeding or discharge. Breath smells of alcohol. NECK: Trachea midline. No JVD. CARDIOVASCULAR: Regular rate and rhythm. No murmur appreciated. RESPIRATORY: No accessory muscle use. Clear to auscultation. Breath sounds equal bilaterally. MUSCULOSKELETAL: No obvious deformities. No clubbing. No cyanosis. No edema. NEUROLOGICAL: Awake and alert. No obvious cranial nerve deficits. Motor grossly within normal limits. Normal speech. Nonfocal. Oriented 4. PSYCHIATRIC: Appears intoxicated. Data Data Last Documented VS Vital Signs Date Time Temp Pulse Resp B/P Pulse Ox O2 Delivery O2 Flow Rate FiO2 09/05/16 22:24 97.4 88 16 133/84 97 Orders Complete Blood Count With Diff (09/05/16 22:08) Comprehensive Metabolic Panel (09/05/16 22:08) Psych Screen (09/05/16 22:08) Drug Screen, Random Urine (09/05/16 22:08) Alcohol (Ethanol) (09/05/16 22:08) Labs Laboratory Tests Test 09/05/16 09/05/16 22:10 22:20 White Blood Count 4.4 TH/MM3 Red Blood Count 4.50 MIL/MM3 Hemoglobin 14.4 GM/DL Hematocrit 41.2 % Mean Corpuscular Volume 91.5 FL Mean Corpuscular Hemoglobin 31.9 PG Mean Corpuscular Hemoglobin 34.9 % Concent Red Cell Distribution Width 17.6 % Platelet Count 80 TH/MM3 Mean Platelet Volume 7.1 FL Neutrophils (%) (Auto) 44.5 % Lymphocytes (%) (Auto) 43.2 % Monocytes (%) (Auto) 10.1 % Eosinophils (%) (Auto) 1.5 % Basophils (%) (Auto) 0.7 % Neutrophils # (Auto) 2.0 TH/MM3 Lymphocytes # (Auto) 1.9 TH/MM3 Monocytes # (Auto) 0.4 TH/MM3 Eosinophils # (Auto) 0.1 TH/MM3 Basophils # (Auto) 0.0 TH/MM3 CBC Comment AUTO DIFF Differential Comment AUTO DIFF CONFIRMED Platelet Estimate LOW Platelet Morphology Comment NORMAL Red Cell Morphology Comment NORMAL Sodium Level 141 MEQ/L Potassium Level 4.2 MEQ/L Chloride Level 102 MEQ/L Carbon Dioxide Level 26.6 MEQ/L Anion Gap 12 MEQ/L Blood Urea Nitrogen 8 MG/DL Creatinine 0.99 MG/DL Estimat Glomerular Filtration 80 ML/MIN Rate Random Glucose 89 MG/DL Calcium Level 8.5 MG/DL Total Bilirubin 0.2 MG/DL Aspartate Amino Transf 248 U/L (AST/SGOT) Alanine Aminotransferase 119 U/L (ALT/SGPT) Alkaline Phosphatase 128 U/L Total Protein 8.8 GM/DL Albumin 3.9 GM/DL Ethyl Alcohol Level 427 MG/DL Urine Opiates Screen NEG Urine Barbiturates Screen NEG Urine Amphetamines Screen NEG Urine Benzodiazepines Screen NEG Urine Cocaine Screen POS Urine Cannabinoids Screen NEG MDM Medical Decision Making Medical Screen Exam Complete: Yes Emergency Medical Condition: Yes Medical Record Reviewed: Yes Interpretation(s) Laboratory Tests Test 09/05/16 09/05/16 22:10 22:20 White Blood Count 4.4 TH/MM3 Red Blood Count 4.50 MIL/MM3 Hemoglobin 14.4 GM/DL Hematocrit 41.2 % Mean Corpuscular Volume 91.5 FL Mean Corpuscular Hemoglobin 31.9 PG Mean Corpuscular Hemoglobin 34.9 % Concent Red Cell Distribution Width 17.6 % Platelet Count 80 TH/MM3 Mean Platelet Volume 7.1 FL Neutrophils (%) (Auto) 44.5 % Lymphocytes (%) (Auto) 43.2 % Monocytes (%) (Auto) 10.1 % Eosinophils (%) (Auto) 1.5 % Basophils (%) (Auto) 0.7 % Neutrophils # (Auto) 2.0 TH/MM3 Lymphocytes # (Auto) 1.9 TH/MM3 Monocytes # (Auto) 0.4 TH/MM3 Eosinophils # (Auto) 0.1 TH/MM3 Basophils # (Auto) 0.0 TH/MM3 CBC Comment AUTO DIFF Differential Comment AUTO DIFF CONFIRMED Platelet Estimate LOW Platelet Morphology Comment NORMAL Red Cell Morphology Comment NORMAL Sodium Level 141 MEQ/L Potassium Level 4.2 MEQ/L Chloride Level 102 MEQ/L Carbon Dioxide Level 26.6 MEQ/L Anion Gap 12 MEQ/L Blood Urea Nitrogen 8 MG/DL Creatinine 0.99 MG/DL Estimat Glomerular Filtration 80 ML/MIN Rate Random Glucose 89 MG/DL Calcium Level 8.5 MG/DL Total Bilirubin 0.2 MG/DL Aspartate Amino Transf 248 U/L (AST/SGOT) Alanine Aminotransferase 119 U/L (ALT/SGPT) Alkaline Phosphatase 128 U/L Total Protein 8.8 GM/DL Albumin 3.9 GM/DL Ethyl Alcohol Level 427 MG/DL Urine Opiates Screen NEG Urine Barbiturates Screen NEG Urine Amphetamines Screen NEG Urine Benzodiazepines Screen NEG Urine Cocaine Screen POS Urine Cannabinoids Screen NEG Differential Diagnosis Differential diagnosis includes substance induced mood disorder, alcohol intoxication, alcohol abuse, depressive disorder NOS, just reaction, mood disorder. Narrative Course Labs were drawn and sent. Psychiatric evaluation was ordered. Patient's alcohol level is elevated at 427. AST is greater than ALT consistent with alcohol hepatitis. Patient is medically clear to be evaluated by psychiatry. Disposition as per psych. Diagnosis Primary Impression: Alcohol use disorder, severe, dependence Additional Impression: Substance induced mood disorder Condition: Stable Khanh Mathews MD Sep 05, 2016 22:12
[2016-09-05 22:24] VITALS: BP 133/84; PULSE 88; RESP 16; TEMP 97.4; O2SAT 97
[2016-09-05 22:29] LABS: BASOPHIL % 0.7 % (0.0-2.0); EOSINOPHIL # 0.1 TH/MM3 (0-0.4); EOSINOPHIL % 1.5 % (0.0-4.0); HEMATOCRIT 41.2 % (39.0-51.0); LYMPH % 43.2 % (9.0-44.0); LYMPHOCYTE # 1.9 TH/MM3 (1.0-4.8); MEAN CELL VOLUME 91.5 FL (80.0-100.0); MEAN CORPUSCULAR HEMOGLOBIN 31.9 PG (27.0-34.0); MEAN CORPUSCULAR HGB CONC 34.9 % (32.0-36.0); MONO % 10.1 % (0.0-8.0); NEUT % 44.5 % (16.0-70.0); PLATELET COUNT 80 TH/MM3 (150-450); RED CELL DISTRIBUTION WIDTH 17.6 % (11.6-17.2); WHITE BLOOD COUNT 4.4 TH/MM3 (4.0-11.0)
[2016-09-05 22:37] LABS: HEMO FLAGS AUTO DIFF
[2016-09-05 22:44] LABS: ALT (GPT) 119 U/L (12-78); ANION GAP 12 MEQ/L (5-15); AST (GOT) 248 U/L (15-37); BICARBONATE 26.6 MEQ/L (21.0-32.0); BLOOD UREA NITROGEN 8 MG/DL (7-18); CHLORIDE 102 MEQ/L (98-107); GLOMERULAR FILTRATION RATE 80 ML/MIN (>89); POTASSIUM 4.2 MEQ/L (3.5-5.1); SODIUM (NA) 141 MEQ/L (136-145)
[2016-09-05 22:44] LABS: AMPHETAMINE, URINE NEG (NEG); BARBITURATES, URINE NEG (NEG); COCAINE, URINE POS (NEG)
[2016-09-05 22:48] LABS: ALKALINE PHOSPHATASE 128 U/L (45-117); TOTAL BILIRUBIN ADULT 0.2 MG/DL (0.2-1.0)
[2016-09-05 23:03] LABS: PLATELET ESTIMATE SMEAR LOW (NORMAL); PLATELET MORPHOLOGY NORMAL (NORMAL); SCAN/DIFF AUTO DIFF CONFIRMED
[2016-09-06 04:50] VITALS: PULSE 68; RESP 14; O2SAT 94
[2016-09-06 08:25] VITALS: BP 111/69; PULSE 117; RESP 16; O2SAT 95
--- NOTE | 2016-09-06 11:41 | PD ---
History of Present Illness Chief Complaint: Psychiatric Symptoms Time Seen by Provider: 09:45 Travel History International Travel<30 Days: No Contact w/Intl Traveler<30days: No Known affected area: No Legal Status Legal Status: Gunter Act Gunter Act Signed By: History of Present Illness: This is a 51-year-old male who has been to this emergency department approximately 7 times this year. He is once again positive for alcohol and cocaine. He is not suicidal or homicidal. He is not psychotic. His cognition is intact. At this point he is wanting to go to [facility] for detox and rehabilitation. He was reportedly told they were full yesterday. He was also told to come to this facility. However this facility is not license for detox and rehabilitation. Patient is obviously rather "stuck" in his abuse of alcohol and drugs. He does make suicidal threats at times but this appears to be manipulative and possibly to avoid legal consequences. He is calm, pleasant and cooperative at this moment. He does want to seek help at [facility]. He does not meet criteria for Gunter act or 4 inpatient psychiatric hospitalization. PFSH Past Medical History Hx Anticoagulant Therapy: No ADHD: Yes Arthritis: No Asthma: No Autoimmune Disease: No Anxiety: Yes Depression: Yes Heart Rhythm Problems: Yes Cardiovascular Problems: Yes ([place] ON DECEMBER 21 2015) High Cholesterol: Yes Chemotherapy: No Chest Pain: Yes Congestive Heart Failure: No COPD: No Cerebrovascular Accident: No Diminished Hearing: No Endocrine: No Gastrointestinal Disorders: Yes (ACID REFLUX) GERD: Yes Genitourinary: No Hepatitis: No Hiatal Hernia: No Heparin Induced Thrombocytopen: No Hypertension: Yes (HX OF, NOT ON MEDS) Immune Disorder: No Implanted Vascular Access Dvce: No Kidney Stones: No Musculoskeletal: Yes (FRACTURED L HAND) Neurologic: Yes (LEFT HAND GOES NUMB) Psychiatric: Yes Reproductive: No Respiratory: No Immunizations Current: Yes Migraines: No Myocardial Infarction: Yes (01/02) Radiation Therapy: No Renal Failure: No Sickle Cell Disease: No Sleep Apnea: No Thyroid Disease: No Ulcer: No Past Surgical History Abdominal Surgery: No AICD: No Arteriovenous Shunt: No Cardiac Surgery: No Ear Surgery: No Endocrine Surgery: No Eye Surgery: No Genitourinary Surgery: No Gynecologic Surgery: No Hysterectomy: No Insulin Pump: No Joint Replacement: No Neurologic Surgery: No Oral Surgery: Yes (TOOTH REMOVAL) Pacemaker: No Thoracic Surgery: No Psychiatric History Psychiatric History Hx Psychiatric Treatment: HX OF ANXIETY AND DEPRESSION History of Inpatient Treatment: Yes Social History Hx Alcohol Use: Yes (DAILY) Hx Tobacco Use: Yes Hx Substance Use: Yes Substance Use Type: Alcohol, Marijuana, Nicotine/Cigarettes Other Substances Used: DAILY DRINKER Hx of Substance Use Treatment: Yes Allergies-Medications (Allergen,Severity, Reaction): Coded Allergies: *MDRO Multi-Drug Resistant Organism (Verified Adverse Reaction, Unknown, ) MRSA (arm wound) 01/2015 Reported Meds & Prescriptions Reported Meds & Active Scripts Active Reported Seroquel (Quetiapine Fumarate) 300 Mg Tab 300 Mg PO BID Prozac (Fluoxetine HCl) 40 Mg Cap 40 Cap PO DAILY Review of Systems ROS Limitations: Clinical Condition Except as stated in HPI: all other systems reviewed are Neg Exam Exam Limitations: Clinical Condition Alert: Yes Cobb: Person, Place, Date, Situation Mood: Calm Affect: Euthymic Speech: Clear, Logical Eye Contact: Normal Memory Intact: Immediate, Recent, Remote Insight/Judgement Adequate except when it comes to alcohol and drug abuse. [facility] Medical Decision Making Medical Record Reviewed: Yes Assessment/Plan Gunter act is being lifted and the patient is being referred to [facility]. He does not meet criteria for inpatient psychiatric hospitalization. He is not being manipulated at the moment and is not suicidal or homicidal or psychotic. Orders Complete Blood Count With Diff (09/05/16 22:08) Comprehensive Metabolic Panel (09/05/16 22:08) Psych Screen (09/05/16 22:08) Drug Screen, Random Urine (09/05/16 22:08) Alcohol (Ethanol) (09/05/16 22:08) Diet Regular Basic (09/06/16 Breakfast) Results Vital Signs Date Time Temp Pulse Resp B/P Pulse Ox O2 Delivery O2 Flow Rate FiO2 09/06/16 08:25 117 16 111/69 95 Room Air 09/06/16 04:50 68 14 94 Room Air 09/05/16 22:24 97.4 88 16 133/84 97 Laboratory Tests Test 09/05/16 09/05/16 22:10 22:20 White Blood Count 4.4 Red Blood Count 4.50 Hemoglobin 14.4 Hematocrit 41.2 Mean Corpuscular Volume 91.5 Mean Corpuscular Hemoglobin 31.9 Mean Corpuscular Hemoglobin 34.9 Concent Red Cell Distribution Width 17.6 Platelet Count 80 Mean Platelet Volume 7.1 Neutrophils (%) (Auto) 44.5 Lymphocytes (%) (Auto) 43.2 Monocytes (%) (Auto) 10.1 Eosinophils (%) (Auto) 1.5 Basophils (%) (Auto) 0.7 Neutrophils # (Auto) 2.0 Lymphocytes # (Auto) 1.9 Monocytes # (Auto) 0.4 Eosinophils # (Auto) 0.1 Basophils # (Auto) 0.0 CBC Comment AUTO DIFF Differential Comment AUTO DIFF CONFIRMED Platelet Estimate LOW Platelet Morphology Comment NORMAL Red Cell Morphology Comment NORMAL Sodium Level 141 Potassium Level 4.2 Chloride Level 102 Carbon Dioxide Level 26.6 Anion Gap 12 Blood Urea Nitrogen 8 Creatinine 0.99 Estimat Glomerular Filtration 80 Rate Random Glucose 89 Calcium Level 8.5 Total Bilirubin 0.2 Aspartate Amino Transf 248 (AST/SGOT) Alanine Aminotransferase 119 (ALT/SGPT) Alkaline Phosphatase 128 Total Protein 8.8 Albumin 3.9 Ethyl Alcohol Level 427 Urine Opiates Screen NEG Urine Barbiturates Screen NEG Urine Amphetamines Screen NEG Urine Benzodiazepines Screen NEG Urine Cocaine Screen POS Urine Cannabinoids Screen NEG Diagnosis Primary Impression: Alcohol use disorder, severe, dependence Additional Impression: Substance induced mood disorder [facility] Health and Substance Abuse Departure Forms: Tests/Procedures Patient Instructions: General Instructions, Abuse of Alcohol (ED) Condition: Stable Problem Qualifiers Corey Vanegas MD Sep 06, 2016 11:41
== END 2016-09-06 11:36 | disposition home or self-care (01) ==
LOC: NEPA 21:56
DX: F10.20 Alcohol dependence, uncomplicated (principal); F39 Unspecified mood [affective] disorder; F41.8 Other specified anxiety disorders; F12.90 Cannabis use, unspecified, uncomplicated; I10 Essential (primary) hypertension; F14.90 Cocaine use, unspecified, uncomplicated; I25.2 Old myocardial infarction; Z72.0 Tobacco use
CPT/HCPCS: 80053; 80307; 85025; 99285

== ENCOUNTER 2016-10-20 21:24 | Emergency (ER) | payer OTHER ==
[~2016-10-20] VITALS: Ht 190.5 cm; Wt 95.0 kg
[2016-10-20 21:39] VITALS: BP 133/91; PULSE 115; RESP 18; TEMP 98; O2SAT 96
[2016-10-20 23:17] LABS: ALT (GPT) 163 U/L (12-78); ANION GAP 11 MEQ/L (5-15); AST (GOT) 256 U/L (15-37); BICARBONATE 24.1 MEQ/L (21.0-32.0); BLOOD UREA NITROGEN 9 MG/DL (7-18); CHLORIDE 107 MEQ/L (98-107); GLOMERULAR FILTRATION RATE 90 ML/MIN (>89); POTASSIUM 3.9 MEQ/L (3.5-5.1); SODIUM (NA) 142 MEQ/L (136-145)
[2016-10-20 23:21] LABS: ALKALINE PHOSPHATASE 101 U/L (45-117); TOTAL BILIRUBIN ADULT 0.3 MG/DL (0.2-1.0)
--- NOTE | 2016-10-21 00:18 | PD ---
HPI . Suicidal ideation Chief Complaint: Psychiatric Symptoms Time Seen by Provider: 22:22 Travel History International Travel<30 days: No Contact w/Intl Traveler<30days: No History of Present Illness HPI Patient presents under the Gunter Act with suicidal ideation. He reportedly wants to drown himself or shoot himself. His suicidal ideation is modified by substance abuse. Symptoms are severe in that he has a significant plan of action. PFSH Past Medical History Hx Anticoagulant Therapy: No ADHD: Yes Arthritis: No Asthma: No Autoimmune Disease: No Anxiety: Yes Depression: Yes Heart Rhythm Problems: Yes Cardiovascular Problems: Yes ([place] ON DECEMBER 21 2015) High Cholesterol: Yes Chemotherapy: No Chest Pain: Yes Congestive Heart Failure: No COPD: No Cerebrovascular Accident: No Diminished Hearing: No Endocrine: No Gastrointestinal Disorders: Yes (ACID REFLUX) GERD: Yes Genitourinary: No Hepatitis: No Hiatal Hernia: No Heparin Induced Thrombocytopen: No Hypertension: Yes (HX OF, NOT ON MEDS) Immune Disorder: No Implanted Vascular Access Dvce: No Kidney Stones: No Musculoskeletal: Yes (FRACTURED L HAND) Neurologic: Yes (LEFT HAND GOES NUMB) Psychiatric: Yes Reproductive: No Respiratory: No Immunizations Current: Yes Migraines: No Myocardial Infarction: Yes (01/02) Radiation Therapy: No Renal Failure: No Sickle Cell Disease: No Sleep Apnea: No Thyroid Disease: No Ulcer: No Past Surgical History 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 Reported Meds & Prescriptions Reported Meds & Active Scripts Active Reported Seroquel (Quetiapine Fumarate) 300 Mg Tab 300 Mg PO BID Prozac (Fluoxetine HCl) 40 Mg Cap 40 Cap PO DAILY Review of Systems Except as stated in HPI: all other systems reviewed are Neg Psychiatric: Positive: Depression, Suicidal Ideations, Substance Abuse Physical Exam Narrative GENERAL: Awake and alert and in no acute distress. Obviously intoxicated. SKIN: Warm and dry. HEAD: Atraumatic. Normocephalic. EYES: Pupils equal and round. Extraocular movements are intact. NECK: Trachea midline. CARDIOVASCULAR: Regular rate and rhythm. RESPIRATORY: No accessory muscle use. MUSCULOSKELETAL: No obvious deformities. No edema. NEUROLOGICAL: Awake and alert. No obvious cranial nerve deficits. Motor grossly within normal limits. Normal speech. PSYCHIATRIC: Depressed with suicidal ideation. Judgment poor. Data Data Last Documented VS Vital Signs Date Time Temp Pulse Resp B/P Pulse Ox O2 Delivery O2 Flow Rate FiO2 10/21/16 00:22 114 18 133/77 95 Room Air 10/20/16 21:39 98.0 Orders Complete Blood Count With Diff (10/20/16 22:22) Comprehensive Metabolic Panel (10/20/16 22:22) Psych Screen (10/20/16 22:22) Drug Screen, Random Urine (10/20/16 22:22) Alcohol (Ethanol) (10/20/16 22:22) Labs Laboratory Tests Test 10/20/16 21:45 Sodium Level 142 MEQ/L Potassium Level 3.9 MEQ/L Chloride Level 107 MEQ/L Carbon Dioxide Level 24.1 MEQ/L Anion Gap 11 MEQ/L Blood Urea Nitrogen 9 MG/DL Creatinine 0.90 MG/DL Estimat Glomerular Filtration 90 ML/MIN Rate Random Glucose 82 MG/DL Calcium Level 8.8 MG/DL Total Bilirubin 0.3 MG/DL Aspartate Amino Transf 256 U/L (AST/SGOT) Alanine Aminotransferase 163 U/L (ALT/SGPT) Alkaline Phosphatase 101 U/L Total Protein 8.8 GM/DL Albumin 4.4 GM/DL Ethyl Alcohol Level 388 MG/DL MDM Medical Decision Making Medical Screen Exam Complete: Yes Emergency Medical Condition: Yes Differential Diagnosis Differential diagnosis includes but is not limited to depression with suicidal gesture, suicide attempt, suicidal ideation, attention seeking behavior. Narrative Course Patient presents under the Gunter Act because of suicidal ideation. He will be medically cleared and then evaluated by psychiatry. Diagnosis Primary Impression: Depression with suicidal ideation Additional Impression: Alcohol use disorder, severe, dependence Condition: Stable Caitie Singer MD October 21, 2016 00:18
[2016-10-21 00:22] VITALS: BP 133/77; PULSE 114; RESP 18; O2SAT 95
[2016-10-21 00:57] LABS: AUTOMATED NEUTROPHIL # 2.2 TH/MM3 (1.8-7.7); BASOPHIL % 0.9 % (0.0-2.0); EOSINOPHIL # 0.1 TH/MM3 (0-0.4); EOSINOPHIL % 2.7 % (0.0-4.0); HEMATOCRIT 41.3 % (39.0-51.0); LYMPH % 34.5 % (9.0-44.0); LYMPHOCYTE # 1.4 TH/MM3 (1.0-4.8); MEAN CELL VOLUME 97.7 FL (80.0-100.0); MEAN CORPUSCULAR HEMOGLOBIN 32.9 PG (27.0-34.0); MEAN CORPUSCULAR HGB CONC 33.6 % (32.0-36.0); NEUT % 52.9 % (16.0-70.0); PLATELET COUNT 96 TH/MM3 (150-450); RED BLOOD COUNT 4.23 MIL/MM3 (4.50-5.90); RED CELL DISTRIBUTION WIDTH 16.4 % (11.6-17.2); WHITE BLOOD COUNT 4.2 TH/MM3 (4.0-11.0)
[2016-10-21 01:04] LABS: HEMO FLAGS AUTO DIFF
[2016-10-21 01:15] LABS: PLATELET ESTIMATE SMEAR LOW (NORMAL); PLATELET MORPHOLOGY NORMAL (NORMAL); SCAN/DIFF AUTO DIFF CONFIRMED
[2016-10-21 01:23] LABS: AMPHETAMINE, URINE NEG (NEG); BARBITURATES, URINE NEG (NEG); COCAINE, URINE NEG (NEG)
[2016-10-21 02:07] VITALS: BP 101/92; PULSE 96; RESP 19; O2SAT 99
[2016-10-21 06:15] VITALS: BP 120/69; PULSE 111; RESP 19; O2SAT 96
[2016-10-21 10:46] VITALS: BP 138/84; PULSE 72; RESP 16; O2SAT 96
--- NOTE | 2016-10-21 12:08 | PD ---
History of Present Illness Chief Complaint: Psychiatric Symptoms Time Seen by Provider: 12:00 Travel History International Travel<30 Days: No Contact w/Intl Traveler<30days: No Legal Status Legal Status: Gunter Act Gunter Act Signed By: Vanessa Oliver History of Present Illness: History of Present Illness HPI Patient is a 51 year old male with history of alcohol dependence who presents under the Gunter Act initiated by [employer]. As per the police report " subject openly stated that he wanted to drown himself and asked the operations officer afloat for his firearm so he could shoot the officer as well as shoot himself. He was therefore placed under the BA. At the time the patient arrived to ED he was intoxicated with a BAL of 388. The patient was allowed to sober up in monitored environment. He presented with no behavioral concerns and no suicidality. EMR is reviewed. He has had several visits to ED for alcohol intoxication and suicidal ideation in context of intoxication. His last visit was in September 05 and he was sent to [facility] as he was requesting detoxification services. Patient is seen in J pod. he is awake, alert and oriented. He is clinically sober at thsi time. Speech is clear and logical. Gait is steady. The patient admits that he had been drinking and has no recollection of how he got to [facility]. He tells me that he has not been able to maintain sobriety as " I have too much time on my hands". He goes on to say that when he is working he can have a few beers and stop but since he has been out of work he is bored and therefore drinks. At this time he does report feeling depressed and that the Prozac is probably not working. He fails to realize that while he continues to actively drink he will not be able to fully get benefits from antidepressant therapy. He has no suicidal or homicidal ideation, intent or plan. there is no indication of any psychosis and no emily. PFSH Past Medical History Hx Anticoagulant Therapy: No ADHD: Yes Arthritis: No Asthma: No Autoimmune Disease: No Anxiety: Yes Depression: Yes Heart Rhythm Problems: Yes Cardiovascular Problems: Yes ([place] ON DECEMBER 21 2015) High Cholesterol: Yes Chemotherapy: No Chest Pain: Yes Congestive Heart Failure: No COPD: No Cerebrovascular Accident: No Diminished Hearing: No Endocrine: No Gastrointestinal Disorders: Yes (ACID REFLUX) GERD: Yes Genitourinary: No Hepatitis: No Hiatal Hernia: No Heparin Induced Thrombocytopen: No Hypertension: Yes (HX OF, NOT ON MEDS) Immune Disorder: No Implanted Vascular Access Dvce: No Kidney Stones: No Musculoskeletal: Yes (FRACTURED L HAND) Neurologic: Yes (LEFT HAND GOES NUMB) Psychiatric: Yes Reproductive: No Respiratory: No Immunizations Current: Yes Migraines: No Myocardial Infarction: Yes (01/02) Radiation Therapy: No Renal Failure: No Sickle Cell Disease: No Sleep Apnea: No Thyroid Disease: No Ulcer: No Past Surgical History Abdominal Surgery: No AICD: No Arteriovenous Shunt: No Cardiac Surgery: No Ear Surgery: No Endocrine Surgery: No Eye Surgery: No Genitourinary Surgery: No Gynecologic Surgery: No Hysterectomy: No Insulin Pump: No Joint Replacement: No Neurologic Surgery: No Oral Surgery: Yes (TOOTH REMOVAL) Pacemaker: No Thoracic Surgery: No Psychiatric History Psychiatric History Hx Psychiatric Treatment: HX OF ANXIETY AND DEPRESSION History of Inpatient Treatment: Yes (January 2016. [facility] substance induced mood disorder) Social History [place] male. Lives with several roommates. works in construction. Hx Alcohol Use: Yes (DAILY) Hx Tobacco Use: Yes Hx Substance Use: Yes Substance Use Type: Alcohol, Marijuana, Nicotine/Cigarettes Other Substances Used: DAILY DRINKER Hx of Substance Use Treatment: Yes Family Psychiatric History none reported Allergies-Medications (Allergen,Severity, Reaction): Coded Allergies: *MDRO Multi-Drug Resistant Organism (Verified Adverse Reaction, Unknown, ) MRSA (arm wound) 01/2015 Reported Meds & Prescriptions Reported Meds & Active Scripts Active Reported Seroquel (Quetiapine Fumarate) 300 Mg Tab 300 Mg PO BID Prozac (Fluoxetine HCl) 40 Mg Cap 40 Cap PO DAILY Review of Systems Except as stated in HPI: all other systems reviewed are Neg Exam Alert: Yes [place]: Person (ox4) Mood: Calm Affect: Appropriate Speech: Clear, Logical Eye Contact: Normal Memory Intact: Comment (no impairment) Hallucinations: Other (negative) Delusions: No Suicidal: Ideation (deneis any) Homicidal: Ideation (deneis any) Insight/Judgement poor. poor MDM Medical Decision Making Medical Record Reviewed: Yes Assessment/Plan 51 year old with history of alcohol dependence that in context of alcohol intoxication was placed under a BA for alleging to have made suicidal statements. After he was clinically sober the patietn deneis any suicial or homicdal ideation, intent or plan. I have counseled him regarding abstinence, sobriety david recovery. LIft BA. Discharge. Follow up with [facility] Orders Complete Blood Count With Diff (10/20/16 22:22) Comprehensive Metabolic Panel (10/20/16 22:22) Psych Screen (10/20/16 22:22) Drug Screen, Random Urine (10/20/16 22:22) Alcohol (Ethanol) (10/20/16 22:22) Diet Regular Basic (10/21/16 Breakfast) Results Vital Signs Date Time Temp Pulse Resp B/P Pulse Ox O2 Delivery O2 Flow Rate FiO2 10/21/16 10:46 72 16 138/84 96 10/21/16 06:15 111 19 120/69 96 Room Air 10/21/16 02:07 96 19 101/92 99 Room Air 10/21/16 00:22 114 18 133/77 95 Room Air 10/20/16 21:39 98.0 115 18 133/91 96 Room Air Laboratory Tests Test 10/20/16 10/21/16 21:45 00:35 Sodium Level 142 Potassium Level 3.9 Chloride Level 107 Carbon Dioxide Level 24.1 Anion Gap 11 Blood Urea Nitrogen 9 Creatinine 0.90 Estimat Glomerular Filtration 90 Rate Random Glucose 82 Calcium Level 8.8 Total Bilirubin 0.3 Aspartate Amino Transf 256 (AST/SGOT) Alanine Aminotransferase 163 (ALT/SGPT) Alkaline Phosphatase 101 Total Protein 8.8 Albumin 4.4 Ethyl Alcohol Level 388 White Blood Count 4.2 Red Blood Count 4.23 Hemoglobin 13.9 Hematocrit 41.3 Mean Corpuscular Volume 97.7 Mean Corpuscular Hemoglobin 32.9 Mean Corpuscular Hemoglobin 33.6 Concent Red Cell Distribution Width 16.4 Platelet Count 96 Mean Platelet Volume 8.6 Neutrophils (%) (Auto) 52.9 Lymphocytes (%) (Auto) 34.5 Monocytes (%) (Auto) 9.0 Eosinophils (%) (Auto) 2.7 Basophils (%) (Auto) 0.9 Neutrophils # (Auto) 2.2 Lymphocytes # (Auto) 1.4 Monocytes # (Auto) 0.4 Eosinophils # (Auto) 0.1 Basophils # (Auto) 0.0 CBC Comment AUTO DIFF Differential Comment AUTO DIFF CONFIRMED Platelet Estimate LOW Platelet Morphology Comment NORMAL Red Cell Morphology Comment NORMAL Urine Opiates Screen NEG Urine Barbiturates Screen NEG Urine Amphetamines Screen NEG Urine Benzodiazepines Screen NEG Urine Cocaine Screen NEG Urine Cannabinoids Screen NEG Diagnosis Primary Impression: EtOH dependence Psychiatrically Cleared: Yes Disposition: 01 DISCHARGE HOME Condition: Stable Problem Qualifiers Primary Impression: EtOH dependence Qualified Code: F10.20 - Uncomplicated alcohol dependence Aurea Byrnes [facility] October 21, 2016 12:08
== END 2016-10-21 13:55 | disposition home or self-care (01) ==
LOC: NEPJ 21:24
DX: F32.9 Major depressive disorder, single episode, unspecified (principal); F10.20 Alcohol dependence, uncomplicated; Y90.8 Blood alcohol level of 240 mg/100 ml or more
CPT/HCPCS: 80053; 80307; 85025; 99284

== ENCOUNTER 2017-01-27 21:07 | Emergency (ER) | payer OTHER ==
[~2017-01-27] VITALS: Ht 188 cm; Wt 100.0 kg
[2017-01-27 21:29] VITALS: BP 129/86; PULSE 119; RESP 16; TEMP 98.9; O2SAT 99
--- NOTE | 2017-01-27 21:31 | PD ---
HPI Chief Complaint: Gunter act Time Seen by Provider: 21:27 Travel History International Travel<30 days: No Contact w/Intl Traveler<30days: No Traveled to known affect area: No History of Present Illness HPI 51-year-old white male presents to emergency department under Gunter act by PD. Patient had contacted police notifying him that he would jump off a bridge or commit suicide by department head. The patient's been feeling more depressed. He lives with 2 individuals who states there are crack ends. He does have a history of alcohol abuse. He also has a history of depression is insomnia. He normally takes Seroquel and another psychotropic. States it is been off his medications and has not been to [facility] sometime. He admits to drinking alcohol today. He denies any other drug abuse. Denies any current medical complaints otherwise. Denies any homicidal ideation. PFSH Past Medical History Hx Anticoagulant Therapy: No ADHD: Yes Arthritis: No Asthma: No Autoimmune Disease: No Anxiety: Yes Depression: Yes Heart Rhythm Problems: Yes Cardiovascular Problems: Yes ([place] ON DECEMBER 21 2015) High Cholesterol: Yes Chemotherapy: No Chest Pain: Yes Congestive Heart Failure: No COPD: No Cerebrovascular Accident: No Diminished Hearing: No Endocrine: No Gastrointestinal Disorders: Yes (ACID REFLUX) GERD: Yes Genitourinary: No Hepatitis: No Hiatal Hernia: No Heparin Induced Thrombocytopen: No Hypertension: Yes (HX OF, NOT ON MEDS) Immune Disorder: No Implanted Vascular Access Dvce: No Kidney Stones: No Musculoskeletal: Yes (FRACTURED L HAND) Neurologic: Yes (LEFT HAND GOES NUMB) Psychiatric: Yes Reproductive: No Respiratory: No Immunizations Current: Yes Migraines: No Myocardial Infarction: Yes (01/02) Radiation Therapy: No Renal Failure: No Sickle Cell Disease: No Sleep Apnea: No Thyroid Disease: No Ulcer: No Tetanus Vaccination: < 5 Years Past Surgical History Abdominal Surgery: No AICD: No Arteriovenous Shunt: No Cardiac Surgery: No Ear Surgery: No Endocrine Surgery: No Eye Surgery: No Genitourinary Surgery: No Gynecologic Surgery: No Hysterectomy: No Insulin Pump: No Joint Replacement: No Neurologic Surgery: No Oral Surgery: Yes (TOOTH REMOVAL) Pacemaker: No Thoracic Surgery: No Social History Alcohol Use: Yes (DAILY) Tobacco Use: Yes Substance Use: Yes (alcohol) Allergies-Medications (Allergen,Severity, Reaction): Coded Allergies: *MDRO Multi-Drug Resistant Organism (Verified Adverse Reaction, Unknown, ) MRSA (arm wound) 01/2015 Reported Meds & Prescriptions Reported Meds & Active Scripts Active Reported Seroquel (Quetiapine Fumarate) 300 Mg Tab 300 Mg PO BID Prozac (Fluoxetine HCl) 40 Mg Cap 40 Cap PO DAILY Review of Systems Except as stated in HPI: all other systems reviewed are Neg Psychiatric: Positive: Depression, Suicidal Ideations, Mood Disorder, Substance Abuse, No: Anxiety, Disorder of Thought, Homicidal Ideation Physical Exam Narrative GENERAL: Well-nourished, well-developed patient. SKIN: Warm and dry. HEAD: Normocephalic and atraumatic. EYES: No scleral icterus. No injection or drainage. ENT: No nasal drainage noted. Mucous membranes pink. Airway patent. NECK: Supple, trachea midline. Moves head freely without obvious discomfort. CARDIOVASCULAR: Regular rate and rhythm without murmurs, gallops, or rubs. RESPIRATORY: Breath sounds equal bilaterally. No accessory muscle use. GASTROINTESTINAL: Abdomen soft, non-tender, nondistended. EXTREMITIES: No cyanosis or edema. BACK: Nontender without obvious deformity. No CVA tenderness. NEURO: Patient is alert and oriented. no sensorimotor deficits. Nonfocal. Normal speech. PSYCH: No delusions. No auditory or visual hallucinations. Data Data Last Documented VS Vital Signs Date Time Temp Pulse Resp B/P Pulse Ox O2 Delivery O2 Flow Rate FiO2 01/27/17 21:31 16 99 Room Air 01/27/17 21:29 98.9 119 129/86 Orders Complete Blood Count With Diff (01/27/17 21:23) Comprehensive Metabolic Panel (01/27/17 21:23) Psych Screen (01/27/17 21:23) Drug Screen, Random Urine (01/27/17 21:23) Alcohol (Ethanol) (01/27/17 21:23) Salicylates (Aspirin) (01/27/17 21:23) Tylenol (Acetaminophen) (01/27/17 21:23) Labs Laboratory Tests Test 01/27/17 21:25 White Blood Count 5.2 TH/MM3 Red Blood Count 4.02 MIL/MM3 Hemoglobin 13.0 GM/DL Hematocrit 37.7 % Mean Corpuscular Volume 93.9 FL Mean Corpuscular Hemoglobin 32.4 PG Mean Corpuscular Hemoglobin 34.5 % Concent Red Cell Distribution Width 13.7 % Platelet Count 163 TH/MM3 Mean Platelet Volume 7.5 FL Neutrophils (%) (Auto) 44.5 % Lymphocytes (%) (Auto) 47.6 % Monocytes (%) (Auto) 5.3 % Eosinophils (%) (Auto) 2.0 % Basophils (%) (Auto) 0.6 % Neutrophils # (Auto) 2.3 TH/MM3 Lymphocytes # (Auto) 2.5 TH/MM3 Monocytes # (Auto) 0.3 TH/MM3 Eosinophils # (Auto) 0.1 TH/MM3 Basophils # (Auto) 0.0 TH/MM3 CBC Comment DIFF FINAL Differential Comment Sodium Level 140 MEQ/L Potassium Level 3.9 MEQ/L Chloride Level 108 MEQ/L Carbon Dioxide Level 25.3 MEQ/L Anion Gap 7 MEQ/L Blood Urea Nitrogen 10 MG/DL Creatinine 0.94 MG/DL Estimat Glomerular Filtration 85 ML/MIN Rate Random Glucose 96 MG/DL Calcium Level 8.4 MG/DL Total Bilirubin 0.2 MG/DL Aspartate Amino Transf 37 U/L (AST/SGOT) Alanine Aminotransferase 33 U/L (ALT/SGPT) Alkaline Phosphatase 82 U/L Total Protein 8.0 GM/DL Albumin 3.7 GM/DL Salicylates Level 2.0 MG/DL Urine Opiates Screen NEG Acetaminophen Level LESS THAN 2.0 MCG/ML Urine Barbiturates Screen NEG Urine Amphetamines Screen NEG Urine Benzodiazepines Screen NEG Urine Cocaine Screen NEG Urine Cannabinoids Screen NEG Ethyl Alcohol Level 255 MG/DL MDM Medical Decision Making Medical Screen Exam Complete: Yes Emergency Medical Condition: Yes Medical Record Reviewed: Yes Interpretation(s) Laboratory Tests Test 01/27/17 21:25 White Blood Count 5.2 TH/MM3 Red Blood Count 4.02 MIL/MM3 Hemoglobin 13.0 GM/DL Hematocrit 37.7 % Mean Corpuscular Volume 93.9 FL Mean Corpuscular Hemoglobin 32.4 PG Mean Corpuscular Hemoglobin 34.5 % Concent Red Cell Distribution Width 13.7 % Platelet Count 163 TH/MM3 Mean Platelet Volume 7.5 FL Neutrophils (%) (Auto) 44.5 % Lymphocytes (%) (Auto) 47.6 % Monocytes (%) (Auto) 5.3 % Eosinophils (%) (Auto) 2.0 % Basophils (%) (Auto) 0.6 % Neutrophils # (Auto) 2.3 TH/MM3 Lymphocytes # (Auto) 2.5 TH/MM3 Monocytes # (Auto) 0.3 TH/MM3 Eosinophils # (Auto) 0.1 TH/MM3 Basophils # (Auto) 0.0 TH/MM3 CBC Comment DIFF FINAL Differential Comment Sodium Level 140 MEQ/L Potassium Level 3.9 MEQ/L Chloride Level 108 MEQ/L Carbon Dioxide Level 25.3 MEQ/L Anion Gap 7 MEQ/L Blood Urea Nitrogen 10 MG/DL Creatinine 0.94 MG/DL Estimat Glomerular Filtration 85 ML/MIN Rate Random Glucose 96 MG/DL Calcium Level 8.4 MG/DL Total Bilirubin 0.2 MG/DL Aspartate Amino Transf 37 U/L (AST/SGOT) Alanine Aminotransferase 33 U/L (ALT/SGPT) Alkaline Phosphatase 82 U/L Total Protein 8.0 GM/DL Albumin 3.7 GM/DL Salicylates Level 2.0 MG/DL Urine Opiates Screen NEG Acetaminophen Level LESS THAN 2.0 MCG/ML Urine Barbiturates Screen NEG Urine Amphetamines Screen NEG Urine Benzodiazepines Screen NEG Urine Cocaine Screen NEG Urine Cannabinoids Screen NEG Ethyl Alcohol Level 255 MG/DL Differential Diagnosis MDM: High Differential diagnoses: Schizophrenia, schizoaffective disorder, bipolar, anxiety, depression, adjustment reaction, mood disorder NOS, ODD, depressive disorder NOS, dementia, dementia with agitation, psychosis NOS, substance induced mood disorder, intermittent explosive disorder, Asperger syndrome, infection,electrolyte abnormality, malingering. Narrative Course Mental health screening discussed with the patient. Psychiatric screen ordered. The patient's been medically cleared. This is medical clearance for psychiatric admission, alcohol induced mood disorder Diagnosis Primary Impression: Medical clearance for psychiatric admission Additional Impression: Alcohol-induced mood disorder Condition: Stable Tanvir Monk Jan 27, 2017 21:31
[2017-01-27 21:43] LABS: AUTOMATED NEUTROPHIL # 2.3 TH/MM3 (1.8-7.7); BASOPHIL % 0.6 % (0.0-2.0); EOSINOPHIL # 0.1 TH/MM3 (0-0.4); HEMATOCRIT 37.7 % (39.0-51.0); HEMO FLAGS DIFF FINAL; LYMPH % 47.6 % (9.0-44.0); LYMPHOCYTE # 2.5 TH/MM3 (1.0-4.8); MEAN CELL VOLUME 93.9 FL (80.0-100.0); MEAN CORPUSCULAR HEMOGLOBIN 32.4 PG (27.0-34.0); MEAN CORPUSCULAR HGB CONC 34.5 % (32.0-36.0); MONO % 5.3 % (0.0-8.0); NEUT % 44.5 % (16.0-70.0); PLATELET COUNT 163 TH/MM3 (150-450); RED BLOOD COUNT 4.02 MIL/MM3 (4.50-5.90); RED CELL DISTRIBUTION WIDTH 13.7 % (11.6-17.2); WHITE BLOOD COUNT 5.2 TH/MM3 (4.0-11.0)
[2017-01-27 21:58] LABS: ANION GAP 7 MEQ/L (5-15); AST (GOT) 37 U/L (15-37); BICARBONATE 25.3 MEQ/L (21.0-32.0); BLOOD UREA NITROGEN 10 MG/DL (7-18); CHLORIDE 108 MEQ/L (98-107); GLOMERULAR FILTRATION RATE 85 ML/MIN (>89); POTASSIUM 3.9 MEQ/L (3.5-5.1); SODIUM (NA) 140 MEQ/L (136-145)
[2017-01-27 21:59] LABS: ALT (GPT) 33 U/L (12-78)
[2017-01-27 22:01] LABS: ALKALINE PHOSPHATASE 82 U/L (45-117); TOTAL BILIRUBIN ADULT 0.2 MG/DL (0.2-1.0)
[2017-01-27 22:04] LABS: ACETAMINOPHEN LESS THAN 2.0 MCG/ML (10.0-30.0); ALCOHOL 255 MG/DL (0-5)
[2017-01-28] MEDS ORDERED: LORazepam 2 MG/ML VIAL IV PUSH PRN ×4 (03:45)
[2017-01-28] MEDS ORDERED: FLUMAZENIL 0.5 MG/5 ML VIAL IV PUSH PRN (03:45)
[2017-01-28] MEDS ORDERED: LORazepam 2 MG TAB PO PRN (03:45)
[2017-01-28] MEDS ORDERED: LORazepam 1 MG TAB PO PRN (03:45)
[2017-01-28 03:49] VITALS: BP 135/91; PULSE 97; RESP 18; O2SAT 99
[2017-01-28 06:43] VITALS: BP 130/87; PULSE 97; RESP 18; O2SAT 97
--- NOTE | 2017-01-28 14:53 | PD ---
History of Present Illness Chief Complaint: Suicide Ideation/Attempt Time Seen by Provider: 14:25 Travel History International Travel<30 Days: No Contact w/Intl Traveler<30days: No Known affected area: No Legal Status Legal Status: Gunter Act Gunter Act Signed By: Vanessa Oliver History of Present Illness: History of Present Illness HPI 51-year-old white male with history of alcohol dependence, depression and PTSD who presents to emergency department under Gunter act initiated by PD. As per the report he contacted the police notifying them that he wanted to jump off a bridge, that he wanted to drown and that the water looked pretty good. He also stated that if he had a firearm he would shoot himself the head. He also reported that he had a noose in his camp and ready to use it. He did not make any attempts to harm himself. Patient was intoxicated at the time the BA was initiated and upon arrival to ED his BAL was 255. The patient was monitored in secure environment and he presented no suicidality. EMR reviewed. He has multiple visits to ED for ETOH related issues. His last visit was on October 20, 2016. He was last admitted to [facility] on February 03, 1016. Patient is seen in J pod. Awake, alert, oriented male in hospital [facility]. maintaining hygiene. He is clinically sober. Speech is clear and logical. No psychosis and no emily. States that he is "almost turning 52 years and I am ready to give this shit up". He wants to go to [facility] for detox and from there he plans on calling [facility] in [place]. He has been there and is able to return . With the assistance of [facility] he reports he was able to remain sober for 4 months. He talks about his need to " get out of [place] " since he knows people here and " I get into trouble". He admits to drinking most days " until I run out of money" He also states that when he is working he doesn't drink. Patient does not endorse experiencing any hallucinations, does not endorse feeling depressed and denies any suicidal or homicidal ideation, intent or plan. he reports impaired sleep with out the Seroquel but has not followed up at [facility]. [facility] Past Medical History Hx Anticoagulant Therapy: No ADHD: Yes Arthritis: No Asthma: No Autoimmune Disease: No Anxiety: Yes Depression: Yes Heart Rhythm Problems: Yes Cardiovascular Problems: Yes ([place] ON DECEMBER 21 2015) High Cholesterol: Yes Chemotherapy: No Chest Pain: Yes Congestive Heart Failure: No COPD: No Cerebrovascular Accident: No Diminished Hearing: No Endocrine: No Gastrointestinal Disorders: Yes (ACID REFLUX) GERD: Yes Genitourinary: No Hepatitis: No Hiatal Hernia: No Heparin Induced Thrombocytopen: No Hypertension: Yes (HX OF, NOT ON MEDS) Immune Disorder: No Implanted Vascular Access Dvce: No Kidney Stones: No Musculoskeletal: Yes (FRACTURED L HAND) Neurologic: Yes (LEFT HAND GOES NUMB) Psychiatric: Yes Reproductive: No Respiratory: No Immunizations Current: Yes Migraines: No Myocardial Infarction: Yes (01/02) Radiation Therapy: No Renal Failure: No Sickle Cell Disease: No Sleep Apnea: No Thyroid Disease: No Ulcer: No Tetanus Vaccination: < 5 Years Past Surgical History Abdominal Surgery: No AICD: No Arteriovenous Shunt: No Cardiac Surgery: No Ear Surgery: No Endocrine Surgery: No Eye Surgery: No Genitourinary Surgery: No Gynecologic Surgery: No Hysterectomy: No Insulin Pump: No Joint Replacement: No Neurologic Surgery: No Oral Surgery: Yes (TOOTH REMOVAL) Pacemaker: No Thoracic Surgery: No Psychiatric History Psychiatric History Hx Psychiatric Treatment: PATIENT WAS LAST ADMITTED TO [facility] FROM 01/24/16 TO 01/31/16 FOR DRUG INDUCED MOOD DISORDER, ALOCHOL INTOXICATION. Has not followed up with [facility] outpatietn History of Inpatient Treatment: Yes Guns or firearms in home: No Social History Single, never . has 4 adult children in [place]. 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 Lives w 2 roommates. Hx Alcohol Use: Yes (DAILY) Hx Tobacco Use: Yes (1/2PPD) Hx Substance Use: Yes Substance Use Type: Alcohol Other Substances Used: DAILY DRINKER Hx of Substance Use Treatment: Yes Family Psychiatric History none reported Allergies-Medications (Allergen,Severity, Reaction): Coded Allergies: *MDRO Multi-Drug Resistant Organism (Verified Adverse Reaction, Unknown, ) MRSA (arm wound) 01/2015 Reported Meds & Prescriptions Reported Meds & Active Scripts Active Reported Seroquel (Quetiapine Fumarate) 300 Mg Tab 300 Mg PO BID Prozac (Fluoxetine HCl) 40 Mg Cap 40 Cap PO DAILY Review of Systems Except as stated in HPI: all other systems reviewed are Neg Exam Alert: Yes [place]: Person (ox4) Mood: Calm Affect: Appropriate Speech: Clear, Logical Eye Contact: Normal Memory Intact: Comment (No impairment) Hallucinations: Other (negative) Delusions: No Suicidal: Ideation (denies any) Homicidal: Ideation (denies any) Insight/Judgement Fair. Not impaired MDM Medical Decision Making Medical Record Reviewed: Yes Assessment/Plan 51-year-old white male with history of alcohol dependence, depression and PTSD who presents to emergency department under Gunter act initiated by PD. As per the report he contacted the police notifying them that he wanted to jump off a bridge, that he wanted to drown and that the water looked pretty good. Patient was allowed to sober up clinically and was monitored. He was able to maintain behavioral control as well as he presented no suicidality. Patient has formulated plans for discharge including detox at [facility] and then pursuing admission to a living sober facility in [place]. He denies suicidal ideation and is future oriented. Support provided. At this time does not meet BA criteria. Will lift BA and provide bus passes to [facility] as per his request. Discharge . Orders Complete Blood Count With Diff (01/27/17 21:23) Comprehensive Metabolic Panel (01/27/17 21:23) Psych Screen (01/27/17 21:23) Drug Screen, Random Urine (01/27/17 21:23) Alcohol (Ethanol) (01/27/17 21:23) Salicylates (Aspirin) (01/27/17 21:23) Tylenol (Acetaminophen) (01/27/17 21:23) Alcohol Withdrawal Asmt-Ciwa ONCE (01/28/17 03:39) Flumazenil Inj (Romazicon Inj) (01/28/17 03:45) Lorazepam (Ativan) (01/28/17 03:45) Lorazepam Inj (Ativan Inj) (01/28/17 03:45) Lorazepam (Ativan) (01/28/17 03:45) Lorazepam Inj (Ativan Inj) (01/28/17 03:45) Lorazepam Inj (Ativan Inj) (01/28/17 03:45) Lorazepam Inj (Ativan Inj) (01/28/17 03:45) Diet Regular Basic (01/28/17 Breakfast) Diet Regular Basic (01/28/17 Lunch) Results Vital Signs Date Time Temp Pulse Resp B/P Pulse Ox O2 Delivery O2 Flow Rate FiO2 01/28/17 06:43 97 18 130/87 97 Room Air 01/28/17 03:49 97 18 135/91 99 Room Air 01/27/17 21:31 16 99 Room Air 01/27/17 21:31 16 01/27/17 21:29 98.9 119 16 129/86 99 Laboratory Tests Test 01/27/17 21:25 White Blood Count 5.2 Red Blood Count 4.02 Hemoglobin 13.0 Hematocrit 37.7 Mean Corpuscular Volume 93.9 Mean Corpuscular Hemoglobin 32.4 Mean Corpuscular Hemoglobin 34.5 Concent Red Cell Distribution Width 13.7 Platelet Count 163 Mean Platelet Volume 7.5 Neutrophils (%) (Auto) 44.5 Lymphocytes (%) (Auto) 47.6 Monocytes (%) (Auto) 5.3 Eosinophils (%) (Auto) 2.0 Basophils (%) (Auto) 0.6 Neutrophils # (Auto) 2.3 Lymphocytes # (Auto) 2.5 Monocytes # (Auto) 0.3 Eosinophils # (Auto) 0.1 Basophils # (Auto) 0.0 CBC Comment DIFF FINAL Differential Comment Sodium Level 140 Potassium Level 3.9 Chloride Level 108 Carbon Dioxide Level 25.3 Anion Gap 7 Blood Urea Nitrogen 10 Creatinine 0.94 Estimat Glomerular Filtration 85 Rate Random Glucose 96 Calcium Level 8.4 Total Bilirubin 0.2 Aspartate Amino Transf 37 (AST/SGOT) Alanine Aminotransferase 33 (ALT/SGPT) Alkaline Phosphatase 82 Total Protein 8.0 Albumin 3.7 Salicylates Level 2.0 Urine Opiates Screen NEG Acetaminophen Level LESS THAN 2.0 Urine Barbiturates Screen NEG Urine Amphetamines Screen NEG Urine Benzodiazepines Screen NEG Urine Cocaine Screen NEG Urine Cannabinoids Screen NEG Ethyl Alcohol Level 255 Diagnosis Primary Impression: Alcohol dependence with intoxication Additional Impression: Alcohol-induced mood disorder Psychiatrically Cleared: Yes Referrals: [facility] (Out patient) call for appointment Departure Forms: Tests/Procedures Patient Instructions: General Instructions, Alcohol Use Disorder (ED) Med/ Other Pt Specific Info: No Meds Exist/No RX given Disposition: 01 DISCHARGE HOME Condition: Stable Problem Qualifiers Aurea Byrnes Jan 28, 2017 14:53
== END 2017-01-28 15:11 | disposition home or self-care (01) ==
LOC: NEPD 21:07 → NEPJ 01-28 15:11
DX: F10.229 Alcohol dependence with intoxication, unspecified (principal); F10.24 Alcohol dependence with alcohol-induced mood disorder; F17.200 Nicotine dependence, unspecified, uncomplicated; I10 Essential (primary) hypertension; Y90.8 Blood alcohol level of 240 mg/100 ml or more; Z79.899 Other long term (current) drug therapy
CPT/HCPCS: 80053; 80307; 85025; 99284

== ENCOUNTER 2017-03-26 20:39 | Emergency (ER) | payer OTHER ==
[~2017-03-26] VITALS: Ht 190.5 cm; Wt 88.0 kg
[2017-03-26 20:56] VITALS: BP 118/75; PULSE 116; RESP 14; TEMP 98.1; O2SAT 95
[2017-03-26 21:45] LABS: AUTOMATED NEUTROPHIL # 1.6 TH/MM3 (1.8-7.7); BASOPHIL % 0.4 % (0.0-2.0); EOSINOPHIL # 0.1 TH/MM3 (0-0.4); HEMO FLAGS DIFF FINAL; LYMPH % 52.1 % (9.0-44.0); LYMPHOCYTE # 2.3 TH/MM3 (1.0-4.8); MEAN CELL VOLUME 92.2 FL (80.0-100.0); MEAN CORPUSCULAR HEMOGLOBIN 31.2 PG (27.0-34.0); MEAN CORPUSCULAR HGB CONC 33.8 % (32.0-36.0); MONO % 9.5 % (0.0-8.0); PLATELET COUNT 122 TH/MM3 (150-450); RED BLOOD COUNT 4.12 MIL/MM3 (4.50-5.90); RED CELL DISTRIBUTION WIDTH 13.9 % (11.6-17.2); WHITE BLOOD COUNT 4.4 TH/MM3 (4.0-11.0)
[2017-03-26 21:55] LABS: ANION GAP 7 MEQ/L (5-15); AST (GOT) 20 U/L (15-37); BICARBONATE 23.6 MEQ/L (21.0-32.0); BLOOD UREA NITROGEN 11 MG/DL (7-18); CHLORIDE 111 MEQ/L (98-107); GLOMERULAR FILTRATION RATE 83 ML/MIN (>89); POTASSIUM 3.8 MEQ/L (3.5-5.1); SODIUM (NA) 142 MEQ/L (136-145)
[2017-03-26 21:56] LABS: ALT (GPT) 22 U/L (12-78)
--- NOTE | 2017-03-26 21:58 | PD ---
HPI . Suicidal ideation Chief Complaint: Psychiatric Symptoms Time Seen by Provider: 21:05 Travel History International Travel<30 days: No Contact w/Intl Traveler<30days: No Traveled to known affect area: No History of Present Illness HPI This patient is brought in by the police for suicidal ideation. He is under a Gunter Act which was initiated by the police. Their report states that the patient was asking them to shoot him. They report further states that the patient was asking if he could use the electric stove installer's fire arm to kill himself. The patient was asking the nurse to inject air into his IV line when I was in the room. Patient's symptoms seem severe. No modifiers. PFSH Past Medical History Hx Anticoagulant Therapy: No ADHD: Yes Arthritis: No Asthma: No Autoimmune Disease: No Anxiety: Yes Depression: Yes Heart Rhythm Problems: Yes Cardiovascular Problems: Yes ([place]) High Cholesterol: Yes Chemotherapy: No Chest Pain: Yes Congestive Heart Failure: No COPD: No Cerebrovascular Accident: No Diminished Hearing: No Endocrine: No Gastrointestinal Disorders: Yes (ACID REFLUX) GERD: Yes Genitourinary: No Hepatitis: No Hiatal Hernia: No Heparin Induced Thrombocytopen: No Hypertension: Yes (HX OF, NOT ON MEDS) Immune Disorder: No Implanted Vascular Access Dvce: No Kidney Stones: No Musculoskeletal: Yes (FRACTURED L HAND) Neurologic: Yes (LEFT HAND GOES NUMB) Psychiatric: Yes Reproductive: No Respiratory: No Immunizations Current: Yes Migraines: No Myocardial Infarction: Yes (01/02) Radiation Therapy: No Renal Failure: No Sickle Cell Disease: No Sleep Apnea: No Thyroid Disease: No Ulcer: No Past Surgical History Abdominal Surgery: No AICD: No Arteriovenous Shunt: No Cardiac Surgery: No Ear Surgery: No Endocrine Surgery: No Eye Surgery: No Genitourinary Surgery: No Gynecologic Surgery: No Hysterectomy: No Insulin Pump: No Joint Replacement: No Neurologic Surgery: No Oral Surgery: Yes (TOOTH REMOVAL) Pacemaker: No Thoracic Surgery: No Social History Alcohol Use: Yes (16 BEERS DAILY) Tobacco Use: Yes (1/2PPD) Substance Use: Yes (HYDROCODONE) Allergies-Medications (Allergen,Severity, Reaction): Coded Allergies: *MDRO Multi-Drug Resistant Organism (Verified Adverse Reaction, Unknown, ) 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 He was initially just staring straight ahead. The patient's eyes then directed at me with a piercing stare. SKIN: Warm and dry with no rash or lesions. HEAD: Normocephalic/atraumatic. EYES: Pupils are equal. Extraocular movements are intact. NECK: Full range of motion with no apparent pain. CARDIOVASCULAR: Regular rate and rhythm. RESPIRATORY: Nonlabored respirations. MUSCULOSKELETAL: Atraumatic. NEUROLOGICAL: Nonfocal. PSYCHIATRIC: Suicidal ideation. Data Data Last Documented VS Vital Signs Date Time Temp Pulse Resp B/P (MAP) Pulse Ox O2 Delivery O2 Flow Rate FiO2 03/26/17 20:56 98.1 116 14 118/75 (89) 95 Room Air Orders Orders Complete Blood Count With Diff (03/26/17 21:07) Comprehensive Metabolic Panel (03/26/17 21:07) Electrocardiogram (03/26/17 21:07) Psych Screen (03/26/17 21:07) Drug Screen, Random Urine (03/26/17 21:07) Alcohol (Ethanol) (03/26/17 21:07) Labs Laboratory Tests Test 03/26/17 21:10 White Blood Count 4.4 TH/MM3 Red Blood Count 4.12 MIL/MM3 Hemoglobin 12.8 GM/DL Hematocrit 38.0 % Mean Corpuscular Volume 92.2 FL Mean Corpuscular Hemoglobin 31.2 PG Mean Corpuscular Hemoglobin Concent 33.8 % Red Cell Distribution Width 13.9 % Platelet Count 122 TH/MM3 Mean Platelet Volume 7.7 FL Neutrophils (%) (Auto) 36.0 % Lymphocytes (%) (Auto) 52.1 % Monocytes (%) (Auto) 9.5 % Eosinophils (%) (Auto) 2.0 % Basophils (%) (Auto) 0.4 % Neutrophils # (Auto) 1.6 TH/MM3 Lymphocytes # (Auto) 2.3 TH/MM3 Monocytes # (Auto) 0.4 TH/MM3 Eosinophils # (Auto) 0.1 TH/MM3 Basophils # (Auto) 0.0 TH/MM3 CBC Comment DIFF FINAL Differential Comment Blood Urea Nitrogen 11 MG/DL Creatinine 0.96 MG/DL Random Glucose 91 MG/DL Total Protein 7.6 GM/DL Albumin 3.8 GM/DL Calcium Level 8.6 MG/DL Alkaline Phosphatase 91 U/L Aspartate Amino Transf (AST/SGOT) 20 U/L Alanine Aminotransferase (ALT/SGPT) 22 U/L Total Bilirubin 0.2 MG/DL Sodium Level 142 MEQ/L Potassium Level 3.8 MEQ/L Chloride Level 111 MEQ/L Carbon Dioxide Level 23.6 MEQ/L Anion Gap 7 MEQ/L Estimat Glomerular Filtration Rate 83 ML/MIN Ethyl Alcohol Level 297 MG/DL [facility] Medical Decision Making Medical Screen Exam Complete: Yes Emergency Medical Condition: Yes Interpretation(s) EKG shows a sinus rhythm with no acute ischemic change. Differential Diagnosis Differential diagnosis includes but is not limited to depression with suicidal gesture, suicide attempt, suicidal ideation, attention seeking behavior. Narrative Course This patient presents as a Gunter Act for suicidal ideation. This patient has a previous cardiac history, therefore an EKG was also done. CBC & BMP Diagram 03/26/17 21:10 Total Protein 7.6, Albumin 3.8, Calcium Level 8.6, Alkaline Phosphatase 91, Aspartate Amino Transf (AST/SGOT) 20, Alanine Aminotransferase (ALT/SGPT) 22, Total Bilirubin 0.2 EtOH 297 This patient is now sound asleep. He is medically clear for psychiatric evaluation. I suspect that the suicidal ideation will resolve when he sleeps it off. Diagnosis Primary Impression: Acute alcohol intoxication Qualified Codes: F10.929 - Alcohol use, unspecified with intoxication, unspecified Additional Impression: Suicidal ideations Condition: Stable Caitie Singer MD Mar 26, 2017 21:58
[2017-03-26 21:59] LABS: ALKALINE PHOSPHATASE 91 U/L (45-117); TOTAL BILIRUBIN ADULT 0.2 MG/DL (0.2-1.0)
[2017-03-26 22:08] LABS: ALCOHOL 297 MG/DL (0-5)
[2017-03-27 10:00] VITALS: BP 135/73; PULSE 67; RESP 17; O2SAT 100
--- NOTE | 2017-03-27 13:04 | EKG ---
Date Performed: 03/26/2017 Time Performed: 21:37:13 PTAGE: 51 years EKG: Sinus rhythm NORMAL ECG PREVIOUS TRACING : 05/12/2016 22.35 DOCTOR: Martin Hernadez Interpretating Date/Time 03/27/2017 12:59:28
[2017-03-27 22:45] VITALS: BP 143/91; PULSE 87; RESP 18
--- NOTE | 2017-03-28 01:57 | PD ---
Physical Exam Date Seen by Provider: Mar 28, 2017 Time Seen by Provider: 01:56 Narrative For full history and physical examination please see previous provider's note. Data Data Last Documented VS Vital Signs Date Time Temp Pulse Resp B/P (MAP) Pulse Ox O2 Delivery O2 Flow Rate FiO2 03/27/17 22:45 87 18 143/91 (108) 03/27/17 10:00 100 Room Air 03/26/17 20:56 98.1 Orders Orders Complete Blood Count With Diff (03/26/17 21:07) Comprehensive Metabolic Panel (03/26/17 21:07) Electrocardiogram (03/26/17 21:07) Psych Screen (03/26/17 21:07) Drug Screen, Random Urine (03/26/17 21:07) Alcohol (Ethanol) (03/26/17 21:07) Diet Regular Basic (03/27/17 Breakfast) Labs Laboratory Tests Test 03/26/17 21:10 03/27/17 16:55 White Blood Count 4.4 TH/MM3 Red Blood Count 4.12 MIL/MM3 Hemoglobin 12.8 GM/DL Hematocrit 38.0 % Mean Corpuscular Volume 92.2 FL Mean Corpuscular Hemoglobin 31.2 PG Mean Corpuscular Hemoglobin Concent 33.8 % Red Cell Distribution Width 13.9 % Platelet Count 122 TH/MM3 Mean Platelet Volume 7.7 FL Neutrophils (%) (Auto) 36.0 % Lymphocytes (%) (Auto) 52.1 % Monocytes (%) (Auto) 9.5 % Eosinophils (%) (Auto) 2.0 % Basophils (%) (Auto) 0.4 % Neutrophils # (Auto) 1.6 TH/MM3 Lymphocytes # (Auto) 2.3 TH/MM3 Monocytes # (Auto) 0.4 TH/MM3 Eosinophils # (Auto) 0.1 TH/MM3 Basophils # (Auto) 0.0 TH/MM3 CBC Comment DIFF FINAL Differential Comment Blood Urea Nitrogen 11 MG/DL Creatinine 0.96 MG/DL Random Glucose 91 MG/DL Total Protein 7.6 GM/DL Albumin 3.8 GM/DL Calcium Level 8.6 MG/DL Alkaline Phosphatase 91 U/L Aspartate Amino Transf (AST/SGOT) 20 U/L Alanine Aminotransferase (ALT/SGPT) 22 U/L Total Bilirubin 0.2 MG/DL Sodium Level 142 MEQ/L Potassium Level 3.8 MEQ/L Chloride Level 111 MEQ/L Carbon Dioxide Level 23.6 MEQ/L Anion Gap 7 MEQ/L Estimat Glomerular Filtration Rate 83 ML/MIN Ethyl Alcohol Level 297 MG/DL Urine Opiates Screen NEG Urine Barbiturates Screen NEG Urine Amphetamines Screen NEG Urine Benzodiazepines Screen NEG Urine Cocaine Screen NEG Urine Cannabinoids Screen NEG [facility] Medical Record Reviewed: Yes Supervised Visit with COCO: No Narrative Course Abrasion is brought into the emergency Department under Gunter act. He was seen and evaluated by the emergency department physician and medically cleared. At this time patient be discharged to [facility] . Diagnosis Primary Impression: Acute alcohol intoxication Qualified Codes: F10.929 - Alcohol use, unspecified with intoxication, unspecified Additional Impression: Suicidal ideations Disposition: 65 DISC TO PSYCH CARE FACILITY Condition: Stable Amanda Dunham FASHION ILLUSTRATOR Mar 28, 2017 01:57
[2017-03-28 02:05] VITALS: BP 159/95; PULSE 95; RESP 18
== END 2017-03-28 02:30 ==
LOC: NEPD 20:39 → NEPJ 03-28 02:30
DX: F10.129 Alcohol abuse with intoxication, unspecified (principal); R45.851 Suicidal ideations; F17.200 Nicotine dependence, unspecified, uncomplicated; I25.2 Old myocardial infarction; Y90.8 Blood alcohol level of 240 mg/100 ml or more
CPT/HCPCS: 80053; 80307; 85025; 93005

== ENCOUNTER 2017-06-23 18:28 | Emergency (ER) | payer OTHER ==
[~2017-06-23] VITALS: Ht 190.5 cm; Wt 88.0 kg
[2017-06-23 18:58] VITALS: BP 150/90; PULSE 126; RESP 20; TEMP 98.9; O2SAT 97
[2017-06-23 19:30] VITALS: BP 152/115; PULSE 128; RESP 16; TEMP 98.4; O2SAT 97
--- NOTE | 2017-06-23 19:30 | PD ---
HPI Chief Complaint: Psychiatric Symptoms Time Seen by Provider: 19:28 Travel History International Travel<30 days: No Contact w/Intl Traveler<30days: No Traveled to known affect area: No History of Present Illness HPI 52-year-old male with long-standing history of alcohol dependency and substance induced mood disorder, high blood pressure, diabetes, presents emergency department under Gunter act for psychiatric evaluation. Patient has been drinking a large amount of alcohol this evening. He had plans of suicide by tying the ties around his neck. He asked police officers for a bullet. Here in the emergency department he is asking me for a noose or a bullet. Stating that he would like to end his life. He states he has not been taking any of his medications for several weeks. He denies any acute medical needs at this time. PFSH Past Medical History Hx Anticoagulant Therapy: No ADHD: Yes Arthritis: No Asthma: No Autoimmune Disease: No Anxiety: Yes Depression: Yes Heart Rhythm Problems: Yes Cardiovascular Problems: Yes ([place]) High Cholesterol: Yes Chemotherapy: No Chest Pain: Yes Congestive Heart Failure: No COPD: No Cerebrovascular Accident: No Diminished Hearing: No Endocrine: No Gastrointestinal Disorders: Yes (ACID REFLUX) GERD: Yes Genitourinary: No Hepatitis: No Hiatal Hernia: No Heparin Induced Thrombocytopen: No Hypertension: Yes Immune Disorder: No Implanted Vascular Access Dvce: No Kidney Stones: No Musculoskeletal: Yes (FRACTURED L HAND) Neurologic: Yes (LEFT HAND GOES NUMB) Psychiatric: Yes Reproductive: No Respiratory: No Immunizations Current: Yes Migraines: No Myocardial Infarction: Yes (2016) Radiation Therapy: No Renal Failure: No Sickle Cell Disease: No Sleep Apnea: No Thyroid Disease: No Ulcer: No Influenza Vaccination: No Past Surgical History Abdominal Surgery: No AICD: No Arteriovenous Shunt: No Cardiac Surgery: No Ear Surgery: No Endocrine Surgery: No Eye Surgery: No Genitourinary Surgery: No Gynecologic Surgery: No Hysterectomy: No Insulin Pump: No Joint Replacement: No Neurologic Surgery: No Oral Surgery: Yes (TOOTH REMOVAL) Pacemaker: No Thoracic Surgery: No Social History Alcohol Use: Yes (16 BEERS DAILY) Tobacco Use: Yes (1/2PPD) Substance Use: No Allergies-Medications (Allergen,Severity, Reaction): Coded Allergies: *MDRO Multi-Drug Resistant Organism (Verified Adverse Reaction, Unknown, ) 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 SKIN: Focused skin assessment warm/dry. HEAD: Atraumatic. Normocephalic. EYES: Pupils equal and round. No scleral icterus. No injection or drainage. ENT: No nasal bleeding or discharge. Mucous membranes pink and moist. NECK: Trachea midline. No JVD. CARDIOVASCULAR: Tachycardic rate and rhythm. No murmur appreciated. RESPIRATORY: No accessory muscle use. Clear to auscultation. Breath sounds equal bilaterally. GASTROINTESTINAL: Abdomen soft, non-tender, nondistended. Hepatic and splenic margins not palpable. MUSCULOSKELETAL: No obvious deformities. No clubbing. No cyanosis. No edema. NEUROLOGICAL: Awake and alert. No obvious cranial nerve deficits. Motor grossly within normal limits. Normal speech. Data Data Last Documented VS Vital Signs Date Time Temp Pulse Resp B/P (MAP) Pulse Ox O2 Delivery O2 Flow Rate FiO2 06/24/17 02:02 113 18 117/71 (86) 96 Room Air 06/23/17 22:12 98.1 Orders Orders Complete Blood Count With Diff (06/23/17 19:12) Comprehensive Metabolic Panel (06/23/17 19:12) Psych Screen (06/23/17 19:12) Drug Screen, Random Urine (06/23/17 19:12) Alcohol (Ethanol) (06/23/17 19:10) Diet Regular Basic (06/24/17 Breakfast) Alcohol Withdrawal Asmt-Ciwa ONCE (06/23/17 22:07) Ondansetron Odt (Zofran Odt) (06/23/17 22:15) Ibuprofen (Motrin) (06/23/17 22:15) Flumazenil Inj (Romazicon Inj) (06/23/17 22:15) Lorazepam (Ativan) (06/23/17 22:15) Lorazepam Inj (Ativan Inj) (06/23/17 22:15) Lorazepam (Ativan) (06/23/17 22:15) Lorazepam Inj (Ativan Inj) (06/23/17 22:15) Lorazepam Inj (Ativan Inj) (06/23/17 22:15) Lorazepam Inj (Ativan Inj) (06/23/17 22:15) Ed Discharge Order (06/24/17 02:49) Labs Laboratory Tests Test 06/23/17 17:35 06/23/17 19:10 Urine Opiates Screen NEG Urine Barbiturates Screen NEG Urine Amphetamines Screen NEG Urine Benzodiazepines Screen NEG Urine Cocaine Screen NEG Urine Cannabinoids Screen NEG White Blood Count 7.3 TH/MM3 Red Blood Count 4.96 MIL/MM3 Hemoglobin 14.9 GM/DL Hematocrit 43.8 % Mean Corpuscular Volume 88.3 FL Mean Corpuscular Hemoglobin 30.1 PG Mean Corpuscular Hemoglobin Concent 34.1 % Red Cell Distribution Width 14.0 % Platelet Count 258 TH/MM3 Mean Platelet Volume 6.8 FL Neutrophils (%) (Auto) 63.6 % Lymphocytes (%) (Auto) 31.5 % Monocytes (%) (Auto) 3.8 % Eosinophils (%) (Auto) 0.7 % Basophils (%) (Auto) 0.4 % Neutrophils # (Auto) 4.6 TH/MM3 Lymphocytes # (Auto) 2.3 TH/MM3 Monocytes # (Auto) 0.3 TH/MM3 Eosinophils # (Auto) 0.1 TH/MM3 Basophils # (Auto) 0.0 TH/MM3 CBC Comment DIFF FINAL Differential Comment Blood Urea Nitrogen 8 MG/DL Creatinine 1.00 MG/DL Random Glucose 99 MG/DL Total Protein 8.8 GM/DL Albumin 4.4 GM/DL Calcium Level 8.7 MG/DL Alkaline Phosphatase 88 U/L Aspartate Amino Transf (AST/SGOT) 35 U/L Alanine Aminotransferase (ALT/SGPT) 32 U/L Total Bilirubin 0.3 MG/DL Sodium Level 138 MEQ/L Potassium Level 3.9 MEQ/L Chloride Level 103 MEQ/L Carbon Dioxide Level 23.6 MEQ/L Anion Gap 11 MEQ/L Estimat Glomerular Filtration Rate 79 ML/MIN Ethyl Alcohol Level 337 MG/DL MDM Medical Decision Making Medical Screen Exam Complete: Yes Emergency Medical Condition: Yes Medical Record Reviewed: Yes Differential Diagnosis Substance-induced mood disorder versus personality disorder versus adjustment reaction disorder Narrative Course 52-year-old male presents to emergency department under [facility] for psychiatric evaluation. Patient appears clinically intoxicated. He is not in distress.CIWA article is initiated. Laboratory Tests Test 06/23/17 17:35 06/23/17 19:10 Urine Opiates Screen NEG Urine Barbiturates Screen NEG Urine Amphetamines Screen NEG Urine Benzodiazepines Screen NEG Urine Cocaine Screen NEG Urine Cannabinoids Screen NEG White Blood Count 7.3 TH/MM3 Red Blood Count 4.96 MIL/MM3 Hemoglobin 14.9 GM/DL Hematocrit 43.8 % Mean Corpuscular Volume 88.3 FL Mean Corpuscular Hemoglobin 30.1 PG Mean Corpuscular Hemoglobin Concent 34.1 % Red Cell Distribution Width 14.0 % Platelet Count 258 TH/MM3 Mean Platelet Volume 6.8 FL Neutrophils (%) (Auto) 63.6 % Lymphocytes (%) (Auto) 31.5 % Monocytes (%) (Auto) 3.8 % Eosinophils (%) (Auto) 0.7 % Basophils (%) (Auto) 0.4 % Neutrophils # (Auto) 4.6 TH/MM3 Lymphocytes # (Auto) 2.3 TH/MM3 Monocytes # (Auto) 0.3 TH/MM3 Eosinophils # (Auto) 0.1 TH/MM3 Basophils # (Auto) 0.0 TH/MM3 CBC Comment DIFF FINAL Differential Comment Blood Urea Nitrogen 8 MG/DL Creatinine 1.00 MG/DL Random Glucose 99 MG/DL Total Protein 8.8 GM/DL Albumin 4.4 GM/DL Calcium Level 8.7 MG/DL Alkaline Phosphatase 88 U/L Aspartate Amino Transf (AST/SGOT) 35 U/L Alanine Aminotransferase (ALT/SGPT) 32 U/L Total Bilirubin 0.3 MG/DL Sodium Level 138 MEQ/L Potassium Level 3.9 MEQ/L Chloride Level 103 MEQ/L Carbon Dioxide Level 23.6 MEQ/L Anion Gap 11 MEQ/L Estimat Glomerular Filtration Rate 79 ML/MIN Ethyl Alcohol Level 337 MG/DL Lab work is without acute concern except for EtOH of 337. Patient is medically cleared to undergo psychiatric screening for further evaluation and disposition. Mental health screening discussed with the patient. Psychiatric screen ordered. Psychiatric screen has been complete and patient has no further medical needs. Patient will be treated discharged for transfer to [facility]. Diagnosis Primary Impression: Alcohol-induced mood disorder Condition: Stable Yari Dickson Jun 23, 2017 19:30
[2017-06-23 19:48] LABS: AUTOMATED NEUTROPHIL # 4.6 TH/MM3 (1.8-7.7); BASOPHIL % 0.4 % (0.0-2.0); EOSINOPHIL # 0.1 TH/MM3 (0-0.4); EOSINOPHIL % 0.7 % (0.0-4.0); HEMATOCRIT 43.8 % (39.0-51.0); HEMOGLOBIN 14.9 GM/DL (13.0-17.0); LYMPH % 31.5 % (9.0-44.0); LYMPHOCYTE # 2.3 TH/MM3 (1.0-4.8); MEAN CELL VOLUME 88.3 FL (80.0-100.0); MEAN CORPUSCULAR HEMOGLOBIN 30.1 PG (27.0-34.0); MEAN CORPUSCULAR HGB CONC 34.1 % (32.0-36.0); MEAN PLATELET VOLUME 6.8 FL (7.0-11.0); MONO % 3.8 % (0.0-8.0); MONOCYTE # 0.3 TH/MM3 (0-0.9); NEUT % 63.6 % (16.0-70.0); PLATELET COUNT 258 TH/MM3 (150-450); RED BLOOD COUNT 4.96 MIL/MM3 (4.50-5.90); WHITE BLOOD COUNT 7.3 TH/MM3 (4.0-11.0)
[2017-06-23 20:09] LABS: ALBUMIN 4.4 GM/DL (3.4-5.0); AST (GOT) 35 U/L (15-37); BICARBONATE 23.6 MEQ/L (21.0-32.0); BLOOD UREA NITROGEN 8 MG/DL (7-18); CALCIUM 8.7 MG/DL (8.5-10.1); CHLORIDE 103 MEQ/L (98-107); GLOMERULAR FILTRATION RATE 79 ML/MIN (>89); GLUCOSE,RANDOM 99 MG/DL (74-106); SODIUM (NA) 138 MEQ/L (136-145)
[2017-06-23 20:10] LABS: ALT (GPT) 32 U/L (12-78)
[2017-06-23 20:14] LABS: ALKALINE PHOSPHATASE 88 U/L (45-117); TOTAL BILIRUBIN ADULT 0.3 MG/DL (0.2-1.0); TOTAL PROTEIN 8.8 GM/DL (6.4-8.2)
[2017-06-23 22:12] VITALS: BP 127/71; PULSE 115; RESP 18; TEMP 98.1; O2SAT 96
[2017-06-23] MEDS ORDERED: FLUMAZENIL 0.5 MG/5 ML VIAL IV PUSH PRN (22:15)
[2017-06-23] MEDS ORDERED: LORazepam 2 MG TAB PO PRN (22:15)
[2017-06-23] MEDS ORDERED: ONDANSETRON ODT 4 MG TAB PO PRN (22:15)
[2017-06-23] MEDS ORDERED: LORazepam 1 MG TAB PO PRN (22:15)
[2017-06-23] MEDS ORDERED: IBUPROFEN 600 MG TAB PO PRN (22:15)
[2017-06-23] MEDS ORDERED: LORazepam 2 MG/ML VIAL IV PUSH PRN ×4 (22:15)
[2017-06-24 02:02] VITALS: BP 117/71; PULSE 113; RESP 18; O2SAT 96
== END 2017-06-24 04:16 ==
LOC: NEDAMB 18:28 → NEPJ 06-24 04:16
DX: F10.94 Alcohol use, unspecified with alcohol-induced mood disorder (principal); F90.9 Attention-deficit hyperactivity disorder, unspecified type; E11.9 Type 2 diabetes mellitus without complications; E78.00 Pure hypercholesterolemia, unspecified; I25.2 Old myocardial infarction; K21.9 Gastro-esophageal reflux disease without esophagitis; I10 Essential (primary) hypertension; F17.200 Nicotine dependence, unspecified, uncomplicated; Z79.899 Other long term (current) drug therapy
CPT/HCPCS: 80053; 80307; 85025; 99285